=== PATIENT | female | born 1985 | race Caucasian/White ===

== ENCOUNTER 2019-04-19 15:54 | Emergency (ER) | payer OTHER ==
[~2019-04-19] VITALS: Ht 157.5 cm; Wt 63.5 kg
[~2019-04-19 15:54] MED LIST: LISI10TA2 PO; SERT25TA PO
[2019-04-19 16:25] VITALS: BP 138/102
[2019-04-19] MEDS ORDERED: HYDR-3164 PO (17:24)
[2019-04-19] MEDS ORDERED: ORPH100T PO (17:24)
--- NOTE | 2019-04-19 17:24 | PHYS DOC ---
Past Medical History Past Medical History: Hypertension Past Surgical History: Tubal ligation Alcohol Use: Occasionally Drug Use: None Adult General Chief Complaint Chief Complaint: Neck Pain HPI HPI Patient is a 33 year old female who presents with right-sided neck pain that she awoke with this morning. Patient states it's very hard to turn and look to the right and she will get a sharp pain in the right neck. Patient states that she did sleep with her arm right behind her neck and on her right side last night. 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 She is rating her pain an 8 out of 10 especially with movement. Review of Systems Review of Systems Musculoskeletal: Right sided neck pain. Denies back pain or joint pain [] All other systems were reviewed and found to be within normal limits, except as documented in this note. Allergies Allergies Allergies Coded Allergies Type Severity Reaction Last Updated Verified No Known Drug Allergies 10/11/13 No Physical Exam Physical Exam Constitutional: Well developed, well nourished, no acute distress, non-toxic appearance. [] HENT: Normocephalic, atraumatic, bilateral external ears normal, oropharynx moist, no oral exudates, nose normal. [] Eyes: PERRLA, EOMI, conjunctiva normal, no discharge. [] Neck: Right range of motion limited, Right neck tenderness, supple, no stridor. [] Cardiovascular:Heart rate regular rhythm, no murmur [] Lungs & Thorax: Bilateral breath sounds clear to auscultation [] Abdomen: Bowel sounds normal, soft, no tenderness, no masses, no pulsatile masses. [] Skin: Warm, dry, no erythema, no rash. [] Back: No tenderness, no CVA tenderness. [] Extremities: No tenderness, no cyanosis, no clubbing, ROM intact, no edema. [] Neurologic: Alert and oriented X 3, normal motor function, normal sensory func tion, no focal deficits noted. [] Psychologic: Affect normal, judgement normal, mood normal. [] Current Patient Data Vital Signs Vital Signs Date Time Temp Pulse Resp B/P (MAP) Pulse Ox O2 Delivery O2 Flow Rate FiO2 04/19/19 16:25 98.1 110 16 138/102 (114) 97 Room Air 98.1 Lab Values Laboratory Tests Test 04/19/19 16:40 POC Urine HCG, Qualitative Hcg negative (Negative) EKG EKG [] Radiology/Procedures Radiology/Procedures [] Course & Med Decision Making Course & Med Decision Making Patient denies fever, nausea, vomiting, visual changes, numbness or tingling, back pain, body aches. Her neck is not rigid and is tender with palpation to the right neck. She denies any injury. Alert and oriented. Ambulatory with steady gait. Neck is supple. Range of motion when looking to the right is not intact due to pain. Patient's chin is rotated to the right but the head is tilted more so to the left. Dragon Disclaimer Dragon Disclaimer This electronic medical record was generated, in whole or in part, using a voice recognition dictation system. Departure Departure Impression: Primary Impression: Acute torticollis Disposition: 01 HOME, SELF-CARE Condition: STABLE Referrals: DEEDEE HAIRSTON MD (PCP) Patient Instructions: Torticollis, Acute Additional Instructions: Follow up with primary care provider. Take medications as prescribed. Try using a heating pad. Scripts Orphenadrine Citrate (ORPHENADRINE CITRATE) 100 Mg Tablet.er 1 TAB PO BID, #20 TAB Prov: NANY ROBERTS APRN 04/19/19 Hydrocodone/Apap 5-325 (NORCO 5-325 TABLET) 1 Each Tablet 1 TAB PO PRN Q6HRS PRN for PAIN, #10 TAB 0 Refills Prov: NANY ROBERTS APRN 04/19/19 NANY ROBERTS APRN Apr 19, 2019 17:24
== END 2019-04-19 17:49 | disposition home or self-care (01) ==
LOC: ER 15:54
DX: M43.6 Torticollis (principal); I10 Essential (primary) hypertension
CPT/HCPCS: 81025; 99283

== ENCOUNTER → 2020-01-09 | Outpatient (CLI) | payer OTHER ==
[~2020-01-09] MED LIST changes: +HYDR-3164 PO; +ORPH100T PO
[2020-01-09 13:07] LABS: BASO % 1 % (0-3); EOS # 0.1 x10^3/uL (0.0-0.7); EOS % 1 % (0-3); HEMATOCRIT 41.7 % (36.0-47.0); HEMOGLOBIN 14.6 g/dL (12.0-15.5); LYMPH # 1.2 x10^3/uL (1.0-4.8); LYMPH % 24 % (24-48); MEAN CORPUSCULAR HEMOGLOBIN 32 pg (25-35); MEAN CORPUSCULAR HGB CONC 35 g/dL (31-37); MEAN CORPUSCULAR VOLUME 91 fL (79-100); MONO # 0.4 x10^3/uL (0.0-1.1); MONO % 8 % (0-9); NEUT # 3.3 x10^3/uL (1.8-7.7); NEUT % 66 % (31-73); PLATELET COUNT 272 x10^3/uL (140-400); RED BLOOD COUNT 4.59 x10^6/uL (3.50-5.40); RED CELL DISTRIBUTION WIDTH 12.5 % (11.5-14.5)
== END | disposition home or self-care (01) ==
LOC: LAB 12:16
PROVIDERS: ATTEND Family Medicine
DX: Z34.91 Encounter for supervision of normal pregnancy, unspecified, first trimester (principal); N91.2 Amenorrhea, unspecified; Z3A.00 Weeks of gestation of pregnancy not specified
CPT/HCPCS: 36415; 84702; 85025; 86592; 86703; 86762; 86850; 86900; 86901; 87340; 88175

== ENCOUNTER → 2020-01-14 | Outpatient (CLI) | payer OTHER ==
[~2020-01-14] MED LIST changes: +CEPH500T PO
== END | disposition home or self-care (01) ==
LOC: LAB 10:58
PROVIDERS: ATTEND Family Medicine
DX: N91.2 Amenorrhea, unspecified (principal)
CPT/HCPCS: 36415; 84702

== ENCOUNTER 2020-01-16 13:16 | Emergency (ER) | payer OTHER ==
[~2020-01-16] VITALS: Ht 154.9 cm; Wt 71.0 kg
[~2020-01-16 13:16] MED LIST changes: -CEPH500T PO
[2020-01-16 13:49] LABS: BILIRUBIN,URINE MODERATE (NEG); CLARITY,URINE CLOUDY; COLOR,URINE RED; NITRITE,URINE NEGATIVE (NEG); PH,URINE 5.5 (<5.0-8.0); PROTEIN,URINE 30 mg/dL (NEG-TRACE)
[2020-01-16 13:59] LABS: BACTERIA,URINE FEW /HPF (0-FEW); RBC,URINE TNTC /HPF (0-2); SQUAMOUS EPITHELIAL CELL,UR FEW /LPF
[2020-01-16 14:02] LABS: BARBITURATES NEG (NEG); BENZODIAZEPINES NEG (NEG); CANNABINOIDS NEG (NEG); COCAINE NEG (NEG); METHADONE NEG (NEG); OPIATES NEG (NEG); PHENCYCLIDINE NEG (NEG)
[2020-01-16 14:03] LABS: AMPHETAMINE/METHAMPHETAMINE NEG (NEG)
--- NOTE | 2020-01-16 14:32 | RAD ---
Obstetric ultrasound less than 14 weeks HISTORY: Vaginal bleeding and . Quantitative beta hCG 19 on January 13. FINDINGS: Transabdominal imaging demonstrates anteverted uterus measuring 7.8 x 4.4 x 4.3 cm. No intrauterine gestational sac documented. Ovaries not visualized. Transvaginal imaging demonstrates an anteverted uterus. Endometrium thickness 0.6 cm. No intrauterine gestational sac or a small cervical cysts. Right ovary measures 1.4 x 3.3 x 1.5 cm with a few subcentimeter follicles. Left ovary measures 1.2 x 3.3 1.3 cm with a few subcentimeter follicles. There is intact bilateral right blood flow. No adnexal masses. No pelvic fluid. IMPRESSION: Negative exam. No intrauterine evident. No adnexal ectopic evident. Given the low quantitative hCG these findings could be the sequela of a sonographically occult early intrauterine , recent spontaneous , or sonographically occult ectopic chronicity. Clinical and sonographic follow-up will be of benefit. Electronically signed by: Harpreet Henderson MD (01/16/2020 2:29 PM) [facility]
[2020-01-16 15:19] LABS: BASO % 1 % (0-3); EOS # 0.1 x10^3/uL (0.0-0.7); EOS % 2 % (0-3); HEMATOCRIT 39.5 % (36.0-47.0); HEMOGLOBIN 13.8 g/dL (12.0-15.5); LYMPH # 1.5 x10^3/uL (1.0-4.8); LYMPH % 26 % (24-48); MEAN CORPUSCULAR HEMOGLOBIN 32 pg (25-35); MEAN CORPUSCULAR HGB CONC 35 g/dL (31-37); MEAN CORPUSCULAR VOLUME 91 fL (79-100); MONO # 0.5 x10^3/uL (0.0-1.1); MONO % 9 % (0-9); NEUT # 3.6 x10^3/uL (1.8-7.7); NEUT % 62 % (31-73); PLATELET COUNT 247 x10^3/uL (140-400); RED BLOOD COUNT 4.36 x10^6/uL (3.50-5.40); RED CELL DISTRIBUTION WIDTH 12.5 % (11.5-14.5); WHITE BLOOD COUNT 5.7 x10^3/uL (4.0-11.0)
[2020-01-16 15:32] LABS: CALCIUM 8.9 mg/dL (8.5-10.1); CREATININE 1.1 mg/dL (0.6-1.0); GFR 56.5; POTASSIUM 3.6 mmol/L (3.5-5.1)
[2020-01-16 15:38] LABS: ALBUMIN 3.6 g/dL (3.4-5.0); TOTAL BILIRUBIN 0.4 mg/dL (0.2-1.0); TOTAL PROTEIN 7.1 g/dL (6.4-8.2)
[2020-01-16] MEDS ORDERED: CEPH500T PO (16:42)
--- NOTE | 2020-01-16 16:42 | PHYS DOC ---
Past Medical History Past Medical History: Hypertension Past Surgical History: Tubal ligation Smoking Status: Never Smoker Alcohol Use: Occasionally Drug Use: None General Adult EDM: Chief Complaint: VAGINAL BLEEDING HPI: HPI: Patient is a 34 year old female with history of hypertension 4 para 3 currently presenting to the ED today with vaginal bleeding and that began 2 days ago. Patient is also complaining of slight lower abdominal cramping. Patient states she was seen by the PCP approximately a week ago and had an incidental positive test, she states her blood work was drawn and she was told she might be having a miscarriage because repeat beta- hCG's were low. She has had a previous tubal ligation.she opened up recently with the intention of getting . Denies any nausea, vomiting. Patient reports last menstrual cycle was the beginning of December 2019 Review of Systems: Review of Systems: Constitutional: Denies fever or chills. [] Eyes: Denies change in visual acuity. [] HENT: Denies nasal congestion or sore throat. [] Respiratory: Denies cough or shortness of breath. [] Cardiovascular: Denies chest pain or edema. [] GI: Reports abdominal pain in , vaginal bleeding in , denies nausea, vomiting, bloody stools or diarrhea. [] : Denies dysuria. [] Musculoskeletal: Denies back pain or joint pain. [] Integument: Denies rash. [] Neurologic: Denies headache, focal weakness or sensory changes. [] Psychiatric: Denies depression or anxiety. [] Heart Score: Risk Factors: Risk Factors: DM, Current or recent (<one month) smoker, HTN, HLP, family history of CAD, obesity. Risk Scores: Score 0 - 3: 2.5% MACE over next 6 weeks - Discharge Home Score 4 - 6: 20.3% MACE over next 6 weeks - Admit for Clinical Observation Score 7 - 10: 72.7% MACE over next 6 weeks - Early Invasive Strategies Allergies: Allergies: Allergies Coded Allergies Type Severity Reaction Last Updated Verified No Known Drug Allergies 10/11/13 No Physical Exam: PE: Constitutional: Well developed, well nourished, no acute distress, non-toxic appearance. [] HENT: Normocephalic, atraumatic, bilateral external ears normal, oropharynx moist, no oral exudates, nose normal. [] Eyes: PERRLA, EOMI, conjunctiva normal, no discharge. [] Neck: Normal range of motion, no tenderness, supple, no stridor. [] Cardiovascular:Heart rate regular rhythm, no murmur [] Lungs & Thorax: Bilateral breath sounds clear to auscultation [] Abdomen: Bowel sounds normal, soft, no tenderness, no masses, no pulsatile masses. [] Pelvic exam External pelvic appears normal, cervix is visualized, no CMT, no adnexal tenderness, trace amount of bright red blood in the vaginal vault Skin: Warm, dry, no erythema, no rash. [] Back: No tenderness, no CVA tenderness. [] Extremities: No tenderness, no cyanosis, no clubbing, ROM intact, no edema. [] Neurologic: Alert and oriented X 3, normal motor function, normal sensory function, no focal deficits noted. [] Psychologic: Affect normal, judgement normal, mood normal. [] Current Patient Data: Labs: Laboratory Tests Test 01/16/20 13:30 01/16/20 13:36 01/16/20 13:43 01/16/20 15:10 Urine Collection Type Unknown Urine Color Red Urine Clarity Cloudy Urine pH 5.5 (<5.0-8.0) Urine Specific [place] >=1.030 (1.000-1.030) Urine Protein 30 mg/dL (NEG-TRACE) Urine Glucose (UA) Negative mg/dL (NEG) Urine Ketones (Stick) 15 mg/dL (NEG) Urine Blood Large (NEG) Urine Nitrite Negative (NEG) Urine Bilirubin Moderate (NEG) Urine Urobilinogen Dipstick 1.0 mg/dL (0.2 mg/dL) Urine Leukocyte Esterase Moderate (NEG) Urine RBC Tntc /HPF (0-2) Urine WBC 5-10 /HPF (0-4) Urine Squamous Epithelial Cells Few /LPF Urine Bacteria Few /HPF (0-FEW) Urine Mucus Slight /LPF Urine Opiates Screen Neg (NEG) Urine Methadone Screen Neg (NEG) Urine Barbiturates Neg (NEG) Urine Phencyclidine Screen Neg (NEG) Urine Amphetamine/Methamphetamine Neg (NEG) Urine Benzodiazepines Screen Neg (NEG) Urine Cocaine Screen Neg (NEG) Urine Cannabinoids Screen Neg (NEG) Urine Ethyl Alcohol Neg (NEG) Sodium Level 140 mmol/L (136-145) Potassium Level 3.6 mmol/L (3.5-5.1) Chloride Level 105 mmol/L (98-107) Carbon Dioxide Level 28 mmol/L (21-32) Anion Gap 7 (6-14) Blood Urea Nitrogen 14 mg/dL (7-20) Creatinine 1.1 mg/dL (0.6-1.0) H Estimated GFR (Cockcroft-Gault) 56.5 BUN/Creatinine Ratio 13 (6-20) Glucose Level 98 mg/dL (70-99) Calcium Level 8.9 mg/dL (8.5-10.1) Total Bilirubin 0.4 mg/dL (0.2-1.0) Aspartate Amino Transferase (AST) 14 U/L (15-37) L Alanine Aminotransferase (ALT) 19 U/L (14-59) Alkaline Phosphatase 73 U/L (46-116) Total Protein 7.1 g/dL (6.4-8.2) Albumin 3.6 g/dL (3.4-5.0) Albumin/Globulin Ratio 1.0 (1.0-1.7) POC Urine HCG, Qualitative Borderline hcg level White Blood Count 5.7 x10^3/uL (4.0-11.0) Red Blood Count 4.36 x10^6/uL (3.50-5.40) Hemoglobin 13.8 g/dL (12.0-15.5) Hematocrit 39.5 % (36.0-47.0) Mean Corpuscular Volume 91 fL (79-100) Mean Corpuscular Hemoglobin 32 pg (25-35) Mean Corpuscular Hemoglobin Concent 35 g/dL (31-37) Red Cell Distribution Width 12.5 % (11.5-14.5) Platelet Count 247 x10^3/uL (140-400) Neutrophils (%) (Auto) 62 % (31-73) Lymphocytes (%) (Auto) 26 % (24-48) Monocytes (%) (Auto) 9 % (0-9) Eosinophils (%) (Auto) 2 % (0-3) Basophils (%) (Auto) 1 % (0-3) Neutrophils # (Auto) 3.6 x10^3/uL (1.8-7.7) Lymphocytes # (Auto) 1.5 x10^3/uL (1.0-4.8) Monocytes # (Auto) 0.5 x10^3/uL (0.0-1.1) Eosinophils # (Auto) 0.1 x10^3/uL (0.0-0.7) Basophils # (Auto) 0.0 x10^3/uL (0.0-0.2) Maternal Serum HCG Beta Subunit 12 mIU/mL (0-5) H Ethyl Alcohol Level < 10 mg/dL (0-10) Laboratory Tests 01/16/20 15:10 Laboratory Tests 01/16/20 13:36 Microbiology 01/16/20 Wet Prep - Final, Complete Vital Signs: Vital Signs Date Time Temp Pulse Resp B/P (MAP) Pulse Ox O2 Delivery O2 Flow Rate FiO2 01/16/20 13:44 98.7 112 18 159/98 (118) 94 Room Air 98.7 EKG: EKG: [] Radiology/Procedures: Radiology/Procedures: []PROCEDURE: OB <14 WKS W/TV Obstetric ultrasound less than 14 weeks HISTORY: Vaginal bleeding and . Quantitative beta hCG 19 on January 13. FINDINGS: Transabdominal imaging demonstrates anteverted uterus measuring 7.8 x 4.4 x 4.3 cm. No intrauterine gestational sac documented. Ovaries not visualized. Transvaginal imaging demonstrates an anteverted uterus. Endometrium thickness 0.6 cm. No intrauterine gestational sac or a small cervical cysts. Right ovary measures 1.4 x 3.3 x 1.5 cm with a few subcentimeter follicles. Left ovary measures 1.2 x 3.3 1.3 cm with a few subcentimeter follicles. There is intact bilateral right blood flow. No adnexal masses. No pelvic fluid. IMPRESSION: Negative exam. No intrauterine evident. No adnexal ectopic evident. Given the low quantitative hCG these findings could be the sequela of a sonographically occult early intrauterine , recent spontaneous , or sonographically occult ectopic chronicity. Clinical and sonographic follow-up will be of benefit. Electronically signed by: Laxmi Henderson MD (01/16/2020 2:29 PM) [facility] [place] DICTATED and SIGNED BY: LAXMI HENDERSON MD DATE: 01/16/20 1429 Course & Med Decision Making: Course & Med Decision Making Pertinent Labs and Imaging studies reviewed. (See chart for details) This is a 34-year-old female patient 4 para 3 currently presenting to the ED today with vaginal bleeding and that began yesterday. Patient had an incidental positive test a week ago, she reports her beta-hCG was low, it was repeated by the primary care doctor and was still trending down. She was informed she could have a miscarriage. Presents today because she started bleeding yesterday. Hemoglobin and hematocrit are normal. Beta-hCG is 12. Looking at her previous labs beta-hCG was 149 on January 09, 2020, beta-hCG was 19 on January 14, 2020. OB ultrasound was unable to find an IUP. Urine positive for UTI d/c on cephalaxin. F/u with Ob/PCP in two days for repeat hcgs. Blood group O+ Lisa Disclaimer: Lisa Disclaimer: This electronic medical record was generated, in whole or in part, using a voice recognition dictation system. Departure Departure Impression: Primary Impression: Miscarriage, threatened, early Additional Impression: UTI (urinary tract infection) Qualified Codes: N39.0 - Urinary tract infection, site not specified Disposition: HOME, SELF-CARE Condition: STABLE Referrals: DEEDEE HAIRSTON MD (PCP) follow up in 2 days fore repeat labs Patient Instructions: Threatened Miscarriage, Urinary Tract Infection Additional Instructions: You were evaluated in the emergency room, it appears you are having a miscarriage. Your beta-hCG was 12 today. This number looks like it is trending down. Please maintain bedrest. Do not do any strenuous activity, no sexual intercourse. Follow-up with your [facility] TE[employer]ER in 2 days for repeat labs. Your blood group is O+. You also have Urinary tract infection, please complete your antibiotics. Return to the Ed if symptoms worsen. Scripts Cephalexin (CEPHALEXIN) 500 Mg Tablet 1 TAB PO BID, #14 TAB Prov: MICHAEL LIU APRN 01/16/20 Justicifation of Admission Dx: Justifications for Admission: Justification of Admission Dx: N/A MICHAEL LIU APRN Jan 16, 2020 16:42
[2020-01-16 16:45] VITALS: BP 138/85
[2020-01-17 20:08] LABS: GC PROBE Negative (Negative)
== END 2020-01-16 16:57 | disposition home or self-care (01) ==
LOC: ER 13:16
DX: O20.0 Threatened abortion (principal); O23.41 Unspecified infection of urinary tract in pregnancy, first trimester; R10.9 Unspecified abdominal pain; I10 Essential (primary) hypertension; Z98.51 Tubal ligation status
CPT/HCPCS: 36415; 76801; 76817; 80053; 80307; 81001; 81025; 84702; 85025; 86850; 86900; 86901; 87086; 87491; 87591; 99284; G0480; Q0111

== ENCOUNTER 2020-02-28 09:46 | Emergency (ER) | payer OTHER ==
[~2020-02-28] VITALS: Ht 157.5 cm; Wt 71.0 kg
[~2020-02-28 09:46] MED LIST changes: +CEPH500T PO
[2020-02-28 10:08] LABS: BILIRUBIN,URINE NEGATIVE (NEG); CLARITY,URINE CLEAR; COLOR,URINE RED; NITRITE,URINE NEGATIVE (NEG); PH,URINE 6.5 (<5.0-8.0); PROTEIN,URINE NEGATIVE (NEG-TRACE)
[2020-02-28 10:38] LABS: BACTERIA,URINE 0 /HPF (0-FEW); RBC,URINE TNTC /HPF (0-2); WBC,URINE 0 /HPF (0-4)
--- NOTE | 2020-02-28 10:58 | RAD ---
EXAM: Obstetric sonogram. HISTORY: Vaginal bleeding. TECHNIQUE: Transvaginal sonographic imaging of the pelvis was performed. COMPARISON: 01/16/2020. FINDINGS: The uterus measures 9.2 x 5.3 x 4.3 cm. The endometrial stripe measures 4.3 mm in thickness. There is an echogenic focus along the endometrial stripe which may be due to a tiny calcification. There are nabothian cysts within the cervix. The ovaries are normal in size and demonstrate normal blood flow. There is no pelvic free fluid. IMPRESSION: No evidence of an intrauterine gestation. There is no beta-hCG level for correlation at the time of dictation. If there is a positive beta-hCG level which is continuing to increase, the possibility of an early viable or ectopic gestation is not excluded. If the beta-hCG level is decreasing, this favors a chemical . Correlate with serial beta hCG levels and possible short-term follow-up sonography. Electronically signed by: Kaylah Phillips MD (02/28/2020 10:55 AM) [id number]
--- NOTE | 2020-02-28 11:01 | ED.ADGEN ---
Past Medical History Past Medical History: Hypertension Additional Past Medical Histor: MISCARRIAGE Past Surgical History: Tubal ligation Smoking Status: Never Smoker Alcohol Use: Occasionally Drug Use: None General Adult EDM: Chief Complaint: ABDOMINAL PAIN IN HPI: HPI: Patient is 34-year-old female who presents to the emergency room complaining of spotting during . Patient states that she had a negative test last week but had a positive test 2 days ago. She had a spontaneous miscarriage at the end of December. She has no idea how far along she may be. She did have some soreness in her abdomen yesterday which is now resolved. She is requesting to be placed on bedrest. 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 She denies any further bleeding or abdominal pain today. She denies any nausea, vomiting, diarrhea, constipation, fever, chills, dysuria. Review of Systems: Review of Systems: Complete ROS is negative unless otherwise documented in HPI Allergies: Allergies: Allergies Coded Allergies Type Severity Reaction Last Updated Verified No Known Drug Allergies 10/11/13 No Physical Exam: PE: General: Awake, alert, NAD. Well Nourished, well hydrated. Cooperative HEENT: Atraumatic, EOMI, PERRL, airway patent, moist oral mucosa Neck: Supple, trachea midline Respiratory: CTA bilaterally, normal effort, no wheezing/crackles CV: RRR, no murmur, cap refill <2 GI: Soft, nondistended, nontender, no masses MSK: No obvious deformities Skin: Warm, dry, intact Neuro: A&O x3, speech NL, sensory and motor grossly intact, no focal deficits Psych: Normal affect, normal mood, not suicidal or homicidal Current Patient Data: Labs: Laboratory Tests Test 02/28/20 09:53 02/28/20 09:56 02/28/20 11:00 Urine Collection Type Unknown Urine Color Red Urine Clarity Clear Urine pH 6.5 (<5.0-8.0) Urine Specific [place] 1.020 (1.000-1.030) Urine Protein Negative mg/dL (NEG-TRACE) Urine Glucose (UA) Negative mg/dL (NEG) Urine Ketones (Stick) Negative mg/dL (NEG) Urine Blood Large (NEG) Urine Nitrite Negative (NEG) Urine Bilirubin Negative (NEG) Urine Urobilinogen Dipstick 1.0 mg/dL (0.2 mg/dL) Urine Leukocyte Esterase Small (NEG) Urine RBC Tntc /HPF (0-2) Urine WBC 0 /HPF (0-4) Urine Squamous Epithelial Cells Mod /LPF Urine Bacteria 0 /HPF (0-FEW) POC Urine HCG, Qualitative Hcg positive (Negative) Maternal Serum HCG Beta Subunit 25 mIU/mL (0-5) H Vital Signs: Vital Signs Date Time Temp Pulse Resp B/P (MAP) Pulse Ox O2 Delivery O2 Flow Rate FiO2 02/28/20 09:49 99.0 118 16 168/107 (127) 97 Room Air 99.0 EKG: EKG: [] Heart Score: Risk Factors: Risk Factors: DM, Current or recent (<one month) smoker, HTN, HLP, family history of CAD, obesity. Risk Scores: Score 0 - 3: 2.5% MACE over next 6 weeks - Discharge Home Score 4 - 6: 20.3% MACE over next 6 weeks - Admit for Clinical Observation Score 7 - 10: 72.7% MACE over next 6 weeks - Early Invasive Strategies Radiology/Procedures: Radiology/Procedures: [] Course & Med Decision Making: Course & Med Decision Making Pertinent Labs and Imaging studies reviewed. (See chart for details) Patient is a 34 year-old who presents to the Emergency Room with vaginal bleeding and abdominal soreness. Patient has not seen passage of tissue. She has not had a formal ultrasound and does not have a confirmed IUP. UA, Rh type, OB ultrasound, test were ordered. At this time, ultrasound shows empty uterus with no signs of ectopic likely related to early . Patient does not need rhogam. I have discussed with the patient that they are likely have a threatened . We have discussed early on in we are unable to prevent miscarriages. We will discussed pelvic rest until she follows up with OBGYN. I have discussed with her that bedrest typically is not indicated this early in and that she should further discuss this with her CEMENTER MACHINE. She will return to the Emergency Room if she has a large amount of bleeding, syncope, SOB. Patient's test results and vitals while in the ED were fully reviewed and discussed with the patient. Patient is stable and at this time does not need admission to the hospital. We have discussed strict return precautions and the importance of following up with their Primary Care Physician. Patient stated understanding and was given an opportunity to ask any questions. Dragon Disclaimer: Dragon Disclaimer: This electronic medical record was generated, in whole or in part, using a voice recognition dictation system. Departure Departure Impression: Primary Impression: Bleeding in early Disposition: 01 DC HOME SELF CARE/HOMELESS Condition: STABLE Referrals: DEEDEE HAIRSTON MD (PCP) Patient Instructions: Vaginal Bleeding During , First Trimester MARTINA MORSE MD Feb 28, 2020 11:01
[2020-02-28 12:12] VITALS: BP 130/81
== END 2020-02-28 12:10 | disposition home or self-care (01) ==
LOC: ER 09:46
DX: O20.9 Hemorrhage in early pregnancy, unspecified (principal); O16.1 Unspecified maternal hypertension, first trimester; Z3A.01 Less than 8 weeks gestation of pregnancy; Z98.51 Tubal ligation status
CPT/HCPCS: 36415; 76817; 81001; 81025; 84702; 86900; 86901; 99284

== ENCOUNTER → 2020-03-04 | Outpatient (CLI) | payer OTHER ==
[2020-02-28 12:12] VITALS: BP 130/81
== END ==
LOC: LAB 11:24
PROVIDERS: ATTEND Family Medicine
DX: O20.0 Threatened abortion (principal)
CPT/HCPCS: 36415; 84702

== ENCOUNTER → 2020-03-17 | Outpatient (CLI) | payer OTHER ==
[2020-02-28 12:12] VITALS: BP 130/81
== END ==
LOC: LAB 10:13
PROVIDERS: ATTEND Family Medicine
DX: O02.0 Blighted ovum and nonhydatidiform mole (principal); Z3A.00 Weeks of gestation of pregnancy not specified
CPT/HCPCS: 36415; 84702

== ENCOUNTER → 2020-06-05 | Outpatient (CLI) | payer OTHER ==
[~2020-06-05] MED LIST changes: +LISI10TA16 PO; -LISI10TA2 PO
[2020-06-05 15:39] LABS: BASO % 1 % (0-3); EOS # 0.1 x10^3/uL (0.0-0.7); EOS % 1 % (0-3); HEMATOCRIT 39.4 % (36.0-47.0); HEMOGLOBIN 13.5 g/dL (12.0-15.5); LYMPH # 1.5 x10^3/uL (1.0-4.8); LYMPH % 19 % (24-48); MEAN CORPUSCULAR HEMOGLOBIN 31 pg (25-35); MEAN CORPUSCULAR HGB CONC 34 g/dL (31-37); MEAN CORPUSCULAR VOLUME 91 fL (79-100); MONO # 0.6 x10^3/uL (0.0-1.1); MONO % 8 % (0-9); NEUT # 5.6 x10^3/uL (1.8-7.7); NEUT % 72 % (31-73); PLATELET COUNT 263 x10^3/uL (140-400); RED BLOOD COUNT 4.33 x10^6/uL (3.50-5.40); RED CELL DISTRIBUTION WIDTH 12.6 % (11.5-14.5); WHITE BLOOD COUNT 7.9 x10^3/uL (4.0-11.0)
== END ==
LOC: LAB 15:14
PROVIDERS: ATTEND Family Medicine
DX: O20.0 Threatened abortion (principal); N91.2 Amenorrhea, unspecified
CPT/HCPCS: 36415; 84702; 85025

== ENCOUNTER → 2020-06-10 | Outpatient (CLI) | payer OTHER | LOC: LAB 09:03 | PROVIDERS: ATTEND Family Medicine | DX: Z34.91 Encounter for supervision of normal pregnancy, unspecified, first trimester (principal); Z3A.00 Weeks of gestation of pregnancy not specified | CPT/HCPCS: 36415; 84702 ==

== ENCOUNTER → 2020-06-18 | Outpatient (CLI) | payer OTHER ==
--- NOTE | 2020-06-18 13:30 | RAD ---
INDICATION: Reason: SUPERVISION OF NORMAL IN FIRST TRIMESTER / Spl. Instructions: / Histor y: COMPARISON: February 2020 TECHNIQUE: Grayscale and color ultrasound images uterus and adnexa. FINDINGS: Uterus: 101 x 73 x 60 mm. Intrauterine gestational sac is identified with a pole with a heart beat of 145 and a crown-rum p length of 12 mm. Right Ovary: 27 x 27 x 24 mm. Left Ovary: 23 x 18 x 13 mm. Vascular flow identified to bilateral ovaries. IMPRESSION: * Intrauterine is identified with estimated gestational age of 7 weeks and 2 days with a positive heartbeat. Recommend routine anomaly screening at 18-22 weeks. Electronically signed by: Michael Pepe MD (06/18/2020 1:28 PM) [id number]
== END ==
LOC: US 12:50
PROVIDERS: ATTEND Family Medicine
DX: Z34.91 Encounter for supervision of normal pregnancy, unspecified, first trimester (principal); Z3A.01 Less than 8 weeks gestation of pregnancy
CPT/HCPCS: 76801

== ENCOUNTER → 2020-06-24 | Outpatient (CLI) | payer OTHER ==
[2020-06-24 11:54] LABS: BASO % 0 % (0-3); EOS # 0.1 x10^3/uL (0.0-0.7); EOS % 1 % (0-3); HEMATOCRIT 41.2 % (36.0-47.0); HEMOGLOBIN 14.4 g/dL (12.0-15.5); LYMPH # 1.2 x10^3/uL (1.0-4.8); LYMPH % 19 % (24-48); MEAN CORPUSCULAR HEMOGLOBIN 32 pg (25-35); MEAN CORPUSCULAR HGB CONC 35 g/dL (31-37); MEAN CORPUSCULAR VOLUME 91 fL (79-100); MONO # 0.5 x10^3/uL (0.0-1.1); MONO % 8 % (0-9); NEUT # 4.8 x10^3/uL (1.8-7.7); NEUT % 72 % (31-73); PLATELET COUNT 266 x10^3/uL (140-400); RED CELL DISTRIBUTION WIDTH 12.8 % (11.5-14.5); WHITE BLOOD COUNT 6.6 x10^3/uL (4.0-11.0)
== END ==
LOC: LAB 11:24
PROVIDERS: ATTEND Family Medicine
DX: Z34.91 Encounter for supervision of normal pregnancy, unspecified, first trimester (principal); Z3A.01 Less than 8 weeks gestation of pregnancy
CPT/HCPCS: 36415; 84144; 84702; 85025; 86592; 86703; 86762; 86850; 86900; 86901; 87340

== ENCOUNTER 2020-07-09 16:47 | Emergency (ER) | payer OTHER ==
[~2020-07-09] VITALS: Ht 157.5 cm; Wt 71.0 kg
[2020-07-09] MEDS ORDERED: IV NORMAL SALINE 1000ML BAG 1,000 ML IV ONE (18:30)
[2020-07-09] MEDS ORDERED: PROCHLORPERAZINE 10 MG/2 ML VIAL. IV ONE (18:30)
[2020-07-09 18:36] LABS: BILIRUBIN,URINE NEGATIVE (NEG); CLARITY,URINE CLEAR; COLOR,URINE YELLOW; NITRITE,URINE NEGATIVE (NEG); PH,URINE 5.5 (<5.0-8.0); PROTEIN,URINE NEGATIVE (NEG-TRACE); UROBILINOGEN,URINE 0.2 mg/dL (0.2 mg/dL)
[2020-07-09 18:42] LABS: BACTERIA,URINE MODERATE /HPF (0-FEW); RBC,URINE 0 /HPF (0-2)
[2020-07-09 19:06] LABS: BASO % 0 % (0-3); EOS % 0 % (0-3); HEMATOCRIT 42.9 % (36.0-47.0); LYMPH # 1.2 x10^3/uL (1.0-4.8); LYMPH % 12 % (24-48); MEAN CORPUSCULAR HEMOGLOBIN 32 pg (25-35); MEAN CORPUSCULAR HGB CONC 35 g/dL (31-37); MEAN CORPUSCULAR VOLUME 91 fL (79-100); MONO # 0.6 x10^3/uL (0.0-1.1); MONO % 6 % (0-9); NEUT # 7.8 x10^3/uL (1.8-7.7); NEUT % 81 % (31-73); PLATELET COUNT 271 x10^3/uL (140-400); RED BLOOD COUNT 4.74 x10^6/uL (3.50-5.40); RED CELL DISTRIBUTION WIDTH 12.5 % (11.5-14.5); WHITE BLOOD COUNT 9.7 x10^3/uL (4.0-11.0)
[2020-07-09 19:21] LABS: CREATININE 0.6 mg/dL (0.6-1.0); GFR 113.8; POTASSIUM 3.5 mmol/L (3.5-5.1)
[2020-07-09 19:28] LABS: ALBUMIN 3.4 g/dL (3.4-5.0); ALBUMIN/GLOBULIN RATIO 0.9 (1.0-1.7); TOTAL BILIRUBIN 0.4 mg/dL (0.2-1.0); TOTAL PROTEIN 7.4 g/dL (6.4-8.2)
[2020-07-09 19:34] VITALS: BP 122/71
[2020-07-09] MEDS ORDERED: PROC10TA57 PO (21:09)
--- NOTE | 2020-07-09 21:10 | PHYS DOC ---
Past Medical History Past Medical History: Hypertension Additional Past Medical Histor: MISCARRIAGE Past Surgical History: Tubal ligation Smoking Status: Never Smoker Alcohol Use: Occasionally Drug Use: None General Adult EDM: Chief Complaint: VOMITING IN HPI: HPI: Patient is a 34 year old female 7 para 3 with 3 miscarriages currently 10 weeks who presents to the ED today complaining of nausea and vomiting in that she has had prior to this . Patient denies any abdominal pain. Denies any vaginal bleeding. She states she follows up with her own PCP. She states she was started on hydroxyzine with no relief. She has also tried zofran with no relief Review of Systems: Review of Systems: Constitutional: Denies fever or chills. [] Eyes: Denies change in visual acuity. [] HENT: Denies nasal congestion or sore throat. [] Respiratory: Denies cough or shortness of breath. [] Cardiovascular: Denies chest pain or edema. [] GI: Reports nausea and vomiting. Denies abdominal pain, bloody stools or diarrhea. [] : Denies dysuria. [] Musculoskeletal: Denies back pain or joint pain. [] Integument: Denies rash. [] Neurologic: Denies headache, focal weakness or sensory changes. [] Psychiatric: Denies depression or anxiety. [] Heart Score: C/O Chest Pain: N/A Risk Factors: Risk Factors: DM, Current or recent (<one month) smoker, HTN, HLP, family history of CAD, obesity. Risk Scores: Score 0 - 3: 2.5% MACE over next 6 weeks - Discharge Home Score 4 - 6: 20.3% MACE over next 6 weeks - Admit for Clinical Observation Score 7 - 10: 72.7% MACE over next 6 weeks - Early Invasive Strategies Current Medications: Current Medications Medications (Trade) Dose Ordered Sig/Dale Start Time Stop Time Status Last Admin Dose Admin Prochlorperazine Edisylate (Compazine) 10 mg 1X ONCE 07/09/20 18:30 07/09/20 18:31 DC 07/09/20 19:07 10 MG Sodium Chloride 1,000 ml @ 1,000 mls/hr 1X ONCE 07/09/20 18:30 07/09/20 19:29 DC 07/09/20 19:07 1,000 MLS/HR Allergies: Allergies: Allergies Coded Allergies Type Severity Reaction Last Updated Verified No Known Drug Allergies 10/11/13 No Physical Exam: PE: Constitutional: Well developed, well nourished, no acute distress, non-toxic a ppearance. [] HENT: Normocephalic, atraumatic, bilateral external ears normal, oropharynx moist, no oral exudates, nose normal. [] Eyes: PERRLA, EOMI, conjunctiva normal, no discharge. [] Neck: Normal range of motion, no tenderness, supple, no stridor. [] Cardiovascular:Heart rate regular rhythm, no murmur [] Lungs & Thorax: Bilateral breath sounds clear to auscultation [] Abdomen: Bowel sounds normal, soft, no tenderness, no masses, no pulsatile masses. [] Skin: Warm, dry, no erythema, no rash. [] Back: No tenderness, no CVA tenderness. [] Extremities: No tenderness, no cyanosis, no clubbing, ROM intact, no edema. [] Neurologic: Alert and oriented X 3, normal motor function, normal sensory function, no focal deficits noted. [] Psychologic: Affect normal, judgement normal, mood normal. [] Current Patient Data: Labs: Laboratory Tests Test 07/09/20 17:40 07/09/20 17:42 07/09/20 18:58 Urine Collection Type Unknown Urine Color Yellow Urine Clarity Clear Urine pH 5.5 (<5.0-8.0) Urine Specific [place] 1.020 (1.000-1.030) Urine Protein Negative mg/dL (NEG-TRACE) Urine Glucose (UA) Negative mg/dL (NEG) Urine Ketones (Stick) 40 mg/dL (NEG) Urine Blood Negative (NEG) Urine Nitrite Negative (NEG) Urine Bilirubin Negative (NEG) Urine Urobilinogen Dipstick 0.2 mg/dL (0.2 mg/dL) Urine Leukocyte Esterase Negative (NEG) Urine RBC 0 /HPF (0-2) Urine WBC 1-4 /HPF (0-4) Urine Squamous Epithelial Cells Mod /LPF Urine Bacteria Moderate /HPF (0-FEW) Urine Mucus Marked /LPF POC Urine HCG, Qualitative Hcg positive (Negative) White Blood Count 9.7 x10^3/uL (4.0-11.0) Red Blood Count 4.74 x10^6/uL (3.50-5.40) Hemoglobin 15.0 g/dL (12.0-15.5) Hematocrit 42.9 % (36.0-47.0) Mean Corpuscular Volume 91 fL (79-100) Mean Corpuscular Hemoglobin 32 pg (25-35) Mean Corpuscular Hemoglobin Concent 35 g/dL (31-37) Red Cell Distribution Width 12.5 % (11.5-14.5) Platelet Count 271 x10^3/uL (140-400) Neutrophils (%) (Auto) 81 % (31-73) H Lymphocytes (%) (Auto) 12 % (24-48) L Monocytes (%) (Auto) 6 % (0-9) Eosinophils (%) (Auto) 0 % (0-3) Basophils (%) (Auto) 0 % (0-3) Neutrophils # (Auto) 7.8 x10^3/uL (1.8-7.7) H Lymphocytes # (Auto) 1.2 x10^3/uL (1.0-4.8) Monocytes # (Auto) 0.6 x10^3/uL (0.0-1.1) Eosinophils # (Auto) 0.0 x10^3/uL (0.0-0.7) Basophils # (Auto) 0.0 x10^3/uL (0.0-0.2) Maternal Serum HCG Beta Subunit 97596 mIU/mL (0-5) H Sodium Level 134 mmol/L (136-145) L Potassium Level 3.5 mmol/L (3.5-5.1) Chloride Level 100 mmol/L (98-107) Carbon Dioxide Level 22 mmol/L (21-32) Anion Gap 12 (6-14) Blood Urea Nitrogen 9 mg/dL (7-20) Creatinine 0.6 mg/dL (0.6-1.0) Estimated GFR (Cockcroft-Gault) 113.8 BUN/Creatinine Ratio 15 (6-20) Glucose Level 90 mg/dL (70-99) Calcium Level 9.0 mg/dL (8.5-10.1) Total Bilirubin 0.4 mg/dL (0.2-1.0) Aspartate Amino Transferase (AST) 14 U/L (15-37) L Alanine Aminotransferase (ALT) 23 U/L (14-59) Alkaline Phosphatase 53 U/L (46-116) Total Protein 7.4 g/dL (6.4-8.2) Albumin 3.4 g/dL (3.4-5.0) Albumin/Globulin Ratio 0.9 (1.0-1.7) L Laboratory Tests 07/09/20 18:58 Laboratory Tests 07/09/20 18:58 Vital Signs: Vital Signs Date Time Temp Pulse Resp B/P (MAP) Pulse Ox O2 Delivery O2 Flow Rate FiO2 07/09/20 17:59 99.1 119 18 157/89 (111) 99 Room Air 99.1 EKG: EKG: [] Radiology/Procedures: Radiology/Procedures: [] Course & Med Decision Making: Course & Med Decision Making Pertinent Labs and Imaging studies reviewed. (See chart for details) This is a 34-year-old female patient currently 10 weeks presenting to the ED today with nausea and vomiting in that she has had for the last 10 weeks. She is currently on hydroxyzine and has tried zofran with no relief CBC CMP with no acute findings, urine noted for dehydration. Urine is also contaminated. Patient was given IV fluids in the ED and Compazine. Feeling better. Discharge to home. Follow-up with her own PCP in the course of this week or next week. Her blood pressure was 157/89. She states she has history of hypertension. I recommended she ensure that her PCP is aware her blood pressure is running high. She has no protein in the urine Dragon Disclaimer: Lisa Disclaimer: This electronic medical record was generated, in whole or in part, using a voice recognition dictation system. Departure Departure Impression: Primary Impression: Hyperemesis gravidarum Additional Impression: Hypertension Qualified Codes: I10 - Essential (primary) hypertension Disposition: 01 DC HOME SELF CARE/HOMELESS Condition: STABLE Referrals: YONI LIVE MD (PCP) follow up in 1-3 days Patient Instructions: Diet - Hyperemesis Gravidarum, Hyperemesis Gravidarum Additional Instructions: You were evaluated in the emergency room for nausea and vomiting in . Your blood pressure was running high at 157/89 please ensure you follow-up with your primary care doctor for this. You noted to be dehydrated. Try your best to push some fluids. Come to the ED at any point symptoms worsen Scripts Prochlorperazine Maleate (Compazine) 10 Mg Tablet 1 TAB PO Q6HRS, #30 TAB 0 Refills Prov: MICHAEL LIU APRN 07/09/20 MICHAEL LIU APRN Jul 09, 2020 21:10
== END 2020-07-09 21:20 | disposition home or self-care (01) ==
LOC: ER 16:47
DX: O21.0 Mild hyperemesis gravidarum (principal); O16.1 Unspecified maternal hypertension, first trimester; Z98.51 Tubal ligation status; Z3A.10 10 weeks gestation of pregnancy
CPT/HCPCS: 36415; 80053; 81001; 81025; 84702; 85025; 87086; 96361; 96374; 99284; J0780; J7030

== ENCOUNTER 2020-07-23 16:41 | Emergency (ER) | payer OTHER ==
[~2020-07-23] VITALS: Ht 157.5 cm; Wt 71.3 kg
[~2020-07-23 16:41] MED LIST changes: +PROC10TA57 PO
[2020-07-23] MEDS ORDERED: IV NORMAL SALINE 1000ML BAG 1,000 ML IV ONE (17:45)
[2020-07-23] MEDS ORDERED: ONDANSETRON PF 4 MG/2 ML VIAL. IVP ONE (17:45)
[2020-07-23 17:49] LABS: BILIRUBIN,URINE NEGATIVE (NEG); CLARITY,URINE CLEAR; COLOR,URINE YELLOW; NITRITE,URINE NEGATIVE (NEG); PROTEIN,URINE NEGATIVE (NEG-TRACE)
[2020-07-23 17:53] LABS: BASO % 1 % (0-3); EOS % 1 % (0-3); HEMATOCRIT 41.3 % (36.0-47.0); HEMOGLOBIN 14.6 g/dL (12.0-15.5); LYMPH # 1.4 x10^3/uL (1.0-4.8); LYMPH % 18 % (24-48); MEAN CORPUSCULAR HEMOGLOBIN 32 pg (25-35); MEAN CORPUSCULAR HGB CONC 35 g/dL (31-37); MEAN CORPUSCULAR VOLUME 90 fL (79-100); MONO # 0.5 x10^3/uL (0.0-1.1); MONO % 7 % (0-9); NEUT # 5.5 x10^3/uL (1.8-7.7); NEUT % 74 % (31-73); PLATELET COUNT 270 x10^3/uL (140-400); RED BLOOD COUNT 4.59 x10^6/uL (3.50-5.40); RED CELL DISTRIBUTION WIDTH 12.1 % (11.5-14.5); WHITE BLOOD COUNT 7.4 x10^3/uL (4.0-11.0)
[2020-07-23 18:06] LABS: BACTERIA,URINE FEW /HPF (0-FEW); RBC,URINE 0 /HPF (0-2)
[2020-07-23 18:06] LABS: CALCIUM 8.5 mg/dL (8.5-10.1); CREATININE 0.5 mg/dL (0.6-1.0); GFR 140.4; POTASSIUM 3.2 mmol/L (3.5-5.1)
--- NOTE | 2020-07-23 18:08 | PHYS DOC ---
Past Medical History Past Medical History: Hypertension Additional Past Medical Histor: MISCARRIAGE Past Surgical History: Tubal ligation Smoking Status: Never Smoker Alcohol Use: None Drug Use: None General Adult EDM: Chief Complaint: DIZZY/LIGHT HEADED HPI: HPI: Patient is a 34 year old female at 12w "I think 1 day" presenting for nausea, vomit and weakness. States she has had intense n/v symptoms with prior pregnancies. No fever, sick contacts, travel or concerning ingestions. She has an OB and has had care thus far, was prescribed something by OB for nausea that "has been helping a little" but she continues to be nauseas. Timing of symptoms intermittent, there is no abdominal pain, vaginal bleeding or loss of fluids. Review of Systems: Review of Systems: Fourteen body systems of review of systems have been reviewed. See HPI for pertinent positives and negative responses, other clancy all other systems are negative, non-pertinent or non-contributory Heart Score: C/O Chest Pain: No HEART Score for Chest Pain: HEART Score for Chest Pain Response (Comments) Value History Slighlty/Non-Suspicious 0 ECG Normal 0 Age < 45 0 Risk Factors No Risk Factors 0 Total 0 Risk Factors: Risk Factors: DM, Current or recent (<one month) smoker, HTN, HLP, family history of CAD, obesity. Risk Scores: Score 0 - 3: 2.5% MACE over next 6 weeks - Discharge Home Score 4 - 6: 20.3% MACE over next 6 weeks - Admit for Clinical Observation Score 7 - 10: 72.7% MACE over next 6 weeks - Early Invasive Strategies Current Medications: Current Medications Medications (Trade) Dose Ordered Sig/Dale Start Time Stop Time Status Last Admin Dose Admin Ondansetron HCl (Zofran) 4 mg 1X ONCE 07/23/20 17:45 07/23/20 17:48 DC Sodium Chloride 1,000 ml @ 1,000 mls/hr 1X ONCE 07/23/20 17:45 07/23/20 18:44 07/23/20 17:49 1,000 MLS/HR Allergies: Allergies: Allergies Coded Allergies Type Severity Reaction Last Updated Verified No Known Drug Allergies 10/11/13 No Physical Exam: PE: Constitutional: Well developed, well nourished, no acute distress, non-toxic appearance. [] HENT: Normocephalic, atraumatic, bilateral external ears normal, oropharynx dry, no oral exudates, nose normal. [] Eyes: PERRLA, EOMI, conjunctiva normal, no discharge. [] Neck: Normal range of motion, no tenderness, supple, no stridor. [] Cardiovascular:Heart rate regular rhythm, no murmur [] Lungs & Thorax: Bilateral breath sounds clear to auscultation [] Abdomen: Bowel sounds normal, soft, no tenderness, no masses, no pulsatile masses. Uterus palpable and consistent with ~12 week gestation, FHR 154[] Skin: Warm, dry, no erythema, no rash. [] Back: No tenderness, no CVA tenderness. [] Extremities: No tenderness, no cyanosis, no clubbing, ROM intact, no edema. [] Neurologic: Alert and oriented X 3, normal motor function, normal sensory function, no focal deficits noted. [] Psychologic: Affect normal, judgement normal, mood normal. [] Current Patient Data: Labs: Laboratory Tests Test 07/23/20 17:20 07/23/20 17:40 Urine Collection Type Unknown Urine Color Yellow Urine Clarity Clear Urine pH 6.0 (<5.0-8.0) Urine Specific [place] 1.020 (1.000-1.030) Urine Protein Negative mg/dL (NEG-TRACE) Urine Glucose (UA) Negative mg/dL (NEG) Urine Ketones (Stick) >=80 mg/dL (NEG) Urine Blood Negative (NEG) Urine Nitrite Negative (NEG) Urine Bilirubin Negative (NEG) Urine Urobilinogen Dipstick 1.0 mg/dL (0.2 mg/dL) Urine Leukocyte Esterase Small (NEG) Urine RBC 0 /HPF (0-2) Urine WBC 5-10 /HPF (0-4) Urine Squamous Epithelial Cells Mod /LPF Urine Bacteria Few /HPF (0-FEW) Urine Mucus Mod /LPF White Blood Count 7.4 x10^3/uL (4.0-11.0) Red Blood Count 4.59 x10^6/uL (3.50-5.40) Hemoglobin 14.6 g/dL (12.0-15.5) Hematocrit 41.3 % (36.0-47.0) Mean Corpuscular Volume 90 fL (79-100) Mean Corpuscular Hemoglobin 32 pg (25-35) Mean Corpuscular Hemoglobin Concent 35 g/dL (31-37) Red Cell Distribution Width 12.1 % (11.5-14.5) Platelet Count 270 x10^3/uL (140-400) Neutrophils (%) (Auto) 74 % (31-73) H Lymphocytes (%) (Auto) 18 % (24-48) L Monocytes (%) (Auto) 7 % (0-9) Eosinophils (%) (Auto) 1 % (0-3) Basophils (%) (Auto) 1 % (0-3) Neutrophils # (Auto) 5.5 x10^3/uL (1.8-7.7) Lymphocytes # (Auto) 1.4 x10^3/uL (1.0-4.8) Monocytes # (Auto) 0.5 x10^3/uL (0.0-1.1) Eosinophils # (Auto) 0.0 x10^3/uL (0.0-0.7) Basophils # (Auto) 0.0 x10^3/uL (0.0-0.2) Laboratory Tests 07/23/20 17:40 Vital Signs: Vital Signs Date Time Temp Pulse Resp B/P (MAP) Pulse Ox O2 Delivery O2 Flow Rate FiO2 07/23/20 17:10 97.0 106 20 139/98 (112) 99 Room Air 97.0 EKG: EKG: EKG ordered and interpreted by daytime physician at 1733, further interpreted by myself at 1807 hrs. as sinus rhythm at 91 bpm, prolonged QTC at 462 otherwise unremarkable intervals, left axis deviation, no acute ischemic findings, no STEMI Radiology/Procedures: Radiology/Procedures: [] Course & Med Decision Making: Course & Med Decision Making Patient with HPI and physical exam consistent with ongoing n/v with dehydration likely contributing to her weakness. There are no obvious red flag signs on symptoms on evaluation Patient responded to 1.5 L IVF rehydration and antiemetics. She felt "much better" and ready to discharge at end of ER course Discussed concern for asymptomatic bacteriuria with patient and need for RX Antibiotics, these were started prior to departure. Strict return precautions discussed with good understanding by patient and , all questions and concerns addressed. Patient to follow-up with OB by the end of the week Lisa Disclaimer: Lisa Disclaimer: This electronic medical record was generated, in whole or in part, using a voice recognition dictation system. Departure Departure Impression: Primary Impression: Nausea & vomiting Additional Impressions: Dehydration Asymptomatic bacteriuria during Disposition: 01 DC HOME SELF CARE/HOMELESS Condition: IMPROVED Referrals: YONI LIVE MD (PCP) Additional Instructions: You were seen for nausea and vomiting. Please continue supportive care practic es at home that includes good p.o. intake and continuation of previously prescribed antiemetics. Please call your DECK AND HULL ASSEMBLER first thing in the morning to review ER visit this evening. You should return to the ED if you develop abdominal pain, fever > 100.3, black/bloody stools, black/bloody vomiting, cannot keep water down, or any other new or concerning symptoms. JUNIE DIAS DO Jul 23, 2020 18:08
[2020-07-23] MEDS ORDERED: CEPHALEXIN 250 MG CAPSULE. PO SCH (19:30)
[2020-07-23] MEDS ORDERED: IV RINGERS,LACTATED 500ML 500 ML IV ONE (19:30)
[2020-07-23 21:27] VITALS: BP 117/70
--- NOTE | 2020-07-23 21:29 | NUR ---
Called down to ER to attempt to doppler heart tones on a 12 week gestational age patient. heart tones obtained at 160-170 BPM
--- NOTE | 2020-07-24 04:05 | EKG ---
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
== END 2020-07-23 21:57 | disposition home or self-care (01) ==
LOC: ER 16:41
DX: O21.9 Vomiting of pregnancy, unspecified (principal); E86.0 Dehydration; R82.71 Bacteriuria; I10 Essential (primary) hypertension; Z98.890 Other specified postprocedural states; Z98.51 Tubal ligation status; Z3A.12 12 weeks gestation of pregnancy
CPT/HCPCS: 36415; 80048; 81001; 85025; 93005; 96361; 96374; 99285; J2405; J7030; J7120

== ENCOUNTER 2020-08-28 20:37 | Emergency (ER) | payer OTHER ==
[~2020-08-28] VITALS: Ht 157.5 cm; Wt 72.0 kg
--- NOTE | 2020-08-28 21:19 | PHYS DOC ---
Past Medical History Past Medical History: Hypertension Additional Past Medical Histor: MISCARRIAGE Past Surgical History: Tubal ligation Smoking Status: Never Smoker Alcohol Use: None Drug Use: None General Adult EDM: Chief Complaint: ABDOMINAL PAIN HPI: HPI: Patient is a 34-year-old female presenting for abdominal pain and . 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 Patient reports dull pressure that is intermittent and sometimes cramping, rates the current pain 4/10 in severity. Also reports minor dysuria and increased physiologic vaginal discharge without fever, chest pain, shortness of breath, ripping or tearing abdominal pain, contractions or vaginal bleeding. She has no history of delivery less than 20 weeks, no known uterus/cervix abnormalities, no changes in baseline health Review of Systems: Review of Systems: Fourteen body systems of review of systems have been reviewed. See HPI for pertinent positives and negative responses, other clancy all other systems are negative, non-pertinent or non-contributory Heart Score: C/O Chest Pain: No HEART Score for Chest Pain: HEART Score for Chest Pain Response (Comments) Value History Slighlty/Non-Suspicious 0 Age < 45 0 Total 0 Risk Factors: Risk Factors: DM, Current or recent (<one month) smoker, HTN, HLP, family history of CAD, obesity. Risk Scores: Score 0 - 3: 2.5% MACE over next 6 weeks - Discharge Home Score 4 - 6: 20.3% MACE over next 6 weeks - Admit for Clinical Observation Score 7 - 10: 72.7% MACE over next 6 weeks - Early Invasive Strategies Allergies: Allergies: Allergies Coded Allergies Type Severity Reaction Last Updated Verified No Known Drug Allergies 10/11/13 No Physical Exam: PE: Constitutional: Well developed, well nourished, no acute distress, non-toxic a ppearance. HENT: Normocephalic, atraumatic, bilateral external ears normal, oropharynx moist, no oral exudates, nose normal. Eyes: PERRLA, EOMI, conjunctiva normal, no discharge. Neck: Normal range of motion, no tenderness, supple, no stridor. Cardiovascular: Heart rate regular, sinus rhythm, no murmurs rubs or gallops Lungs & Thorax: Bilateral breath sounds clear to auscultation Abdomen: Bowel sounds normal, soft and gravid, no tenderness, no masses, no pulsatile masses. Nonsurgical abdomen, no peritoneal signs Skin: Warm, dry, no erythema, no rash. Back: No tenderness, no CVA tenderness. Extremities: No tenderness, no cyanosis, no clubbing, ROM intact, no edema. Neurologic: Alert and oriented X 3, grossly normal motor & sensory function, no focal deficits noted. Psychologic: Affect normal, judgement normal, mood normal. Current Patient Data: Labs: Laboratory Tests Test 08/28/20 20:46 08/28/20 21:15 08/28/20 22:10 Bedside Urine HCG, Qualitative Hcg positive Urine Collection Type Unknown Urine Color Yellow Urine Clarity Clear Urine pH 5.5 Urine Specific [place] 1.020 Urine Protein Negative mg/dL Urine Glucose (UA) Negative mg/dL Urine Ketones (Stick) 15 mg/dL Urine Blood Negative Urine Nitrite Negative Urine Bilirubin Negative Urine Urobilinogen Dipstick 0.2 mg/dL Urine Leukocyte Esterase Small Urine RBC Occ /HPF Urine WBC 11-20 /HPF Urine Squamous Epithelial Cells Many /LPF Urine Bacteria Moderate /HPF Urine Mucus Marked /LPF White Blood Count 8.1 x10^3/uL Red Blood Count 4.08 x10^6/uL Hemoglobin 12.7 g/dL Hematocrit 36.5 % Mean Corpuscular Volume 90 fL Mean Corpuscular Hemoglobin 31 pg Mean Corpuscular Hemoglobin Concent 35 g/dL Red Cell Distribution Width 12.9 % Platelet Count 259 x10^3/uL Neutrophils (%) (Auto) 73 % Lymphocytes (%) (Auto) 18 % Monocytes (%) (Auto) 7 % Eosinophils (%) (Auto) 1 % Basophils (%) (Auto) 1 % Neutrophils # (Auto) 5.9 x10^3/uL Lymphocytes # (Auto) 1.5 x10^3/uL Monocytes # (Auto) 0.5 x10^3/uL Eosinophils # (Auto) 0.1 x10^3/uL Basophils # (Auto) 0.0 x10^3/uL Sodium Level 139 mmol/L Potassium Level 3.2 mmol/L Chloride Level 105 mmol/L Carbon Dioxide Level 25 mmol/L Anion Gap 9 Blood Urea Nitrogen 11 mg/dL Creatinine 0.5 mg/dL Estimated GFR (Cockcroft-Gault) 140.4 Glucose Level 91 mg/dL Calcium Level 8.5 mg/dL Current Medications Medications (Trade) Dose Ordered Sig/Dale Route PRN Reason Start Time Stop Time Status Last Admin Dose Admin Ringer's Solution 500 ml @ 500 mls/hr 1X ONCE IV 08/28/20 22:30 08/28/20 23:29 DC 08/28/20 22:21 Potassium Chloride (Klor-Con) 40 meq 1X ONCE PO 08/28/20 23:30 08/28/20 23:31 DC Vital Signs: Vital Signs Date Time Temp Pulse Resp B/P (MAP) Pulse Ox O2 Delivery O2 Flow Rate FiO2 08/28/20 20:55 98.1 121 20 145/94 (111) 98 Room Air 98.1 Vital Signs Date Time Temp Pulse Resp B/P (MAP) Pulse Ox O2 Delivery O2 Flow Rate FiO2 08/28/20 23:47 98 16 133/81 (98) 96 Room Air 08/28/20 20:55 98.1 98.1 EKG: EKG: [] Radiology/Procedures: Radiology/Procedures: Study: US OB LIMITED Clinical Indication: Lower abdominal pain. Comparison: 06/18/2020 Technique: Multiple grayscale images, color Doppler, and M-mode images of the uterus are obtained. Findings: Single live intrauterine gestation in variable presentation. The placenta is posterior in location without placenta previa. Within normal limits amniotic fluid volume. Closed cervix. Biometrical data: BPD = 3.84 cm for 17 weeks 5 days HC = 14.5 cm for 17 weeks 5 days AC = 13.1 cm for 18 weeks 4 days FL = 2.82 cm for 18 weeks 4 days CI ratio = 81.7 HC/AC ratio = 1.11 FL/HC ratio = 19.4 FL/AC ratio = 21.6 The estimated sonographic gestational age is 18 weeks 1 day for a delivery date of 01/28/2021. The estimated date of delivery provided by the last menstrual period is 02/02/2021. Estimated weight of 243 g +/- 36 g. 4 chamber heart with cardiac activity. The heart rate of 152 beats per minute. A complete survey was not performed on this limited exam. Impression: 1. Single live intrauterine gestation with estimated sonographic gestational age of 18 weeks 1 day corresponding to a delivery date of 01/28/2021. Estimated delivery date by last menstrual period of 02/02/2021. Biometric data is within normal limits. 2. Variable presentation at this time. Posterior placenta without previa. Within normal limits amniotic fluid volume. Closed cervix.. 3. No complication is seen to explain the patient's abdominal pain. Electronically signed by: KAE JIANG MD (08/28/2020 11:40 PM) [facility] Course & Med Decision Making: Course & Med Decision Making Tachycardic otherwise vital signs stable, HPI and physical exam nonconcerning for any emergent or surgical issues ER work-up obtained, UA concerning for acute infection, patient hypokalemic, OB ultrasound nonconcerning for any emergent or surgical abnormalities Joint decision to treat patient with Keflex antibiotic. 40 mEq potassium administered. 1 L IV lactated Ringer's administered. Patient's presenting symptoms resolved with ER intervention I discussed need for close follow-up. 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 Strict return precautions were discussed with good understanding by patient and at bedside, all questions and concerns addressed prior to your departure Dragon Disclaimer: Dragon Disclaimer: This electronic medical record was generated, in whole or in part, using a voice recognition dictation system. Departure Departure Impression: Primary Impression: UTI (urinary tract infection) Additional Impressions: Hypokalemia and not yet delivered in second trimester Disposition: 01 HOME / SELF CARE / HOMELESS Condition: IMPROVED Referrals: YONI LIVE MD (PCP) Additional Instructions: As discussed prior to your departure, your urinalysis was concerning for infection. As such, the antibiotic Keflex was given and subsequently prescribed to you for use on discharge. Your symptoms also respond to IV fluid rehydration. Your low potassium level was fixed with potassium supplement given while in ER setting. I disclosed nonconcerning physical exam findings and little indication for further diagnostic work-up in ER setting. You have outpatient follow-up scheduled with your primary care physician in less than 12 hours, I advise you to keep this appointment and follow-up on your visit today. If any concerning signs or symptoms present prior to outpatient follow-up please do not hesitate to come back for repeat evaluation. It was a pleasure to take care of you and I wish you the best going forward Scripts Cephalexin (CEPHALEXIN) 500 Mg Tablet 1 TAB PO TID for 5 Days, #15 TAB Prov: JUNIE DIAS DO 08/28/20 JUNIE DIAS DO August 28, 2020 21:19
[2020-08-28 21:27] LABS: BILIRUBIN,URINE NEGATIVE (NEG); CLARITY,URINE CLEAR; COLOR,URINE YELLOW; NITRITE,URINE NEGATIVE (NEG); PH,URINE 5.5 (<5.0-8.0); PROTEIN,URINE NEGATIVE (NEG-TRACE); UROBILINOGEN,URINE 0.2 mg/dL (0.2 mg/dL)
[2020-08-28 21:38] LABS: BACTERIA,URINE MODERATE /HPF (0-FEW); RBC,URINE OCC /HPF (0-2)
[2020-08-28 22:24] LABS: BASO % 1 % (0-3); EOS # 0.1 x10^3/uL (0.0-0.7); EOS % 1 % (0-3); HEMATOCRIT 36.5 % (36.0-47.0); HEMOGLOBIN 12.7 g/dL (12.0-15.5); LYMPH # 1.5 x10^3/uL (1.0-4.8); LYMPH % 18 % (24-48); MEAN CORPUSCULAR HEMOGLOBIN 31 pg (25-35); MEAN CORPUSCULAR HGB CONC 35 g/dL (31-37); MEAN CORPUSCULAR VOLUME 90 fL (79-100); MONO # 0.5 x10^3/uL (0.0-1.1); MONO % 7 % (0-9); NEUT # 5.9 x10^3/uL (1.8-7.7); NEUT % 73 % (31-73); PLATELET COUNT 259 x10^3/uL (140-400); RED BLOOD COUNT 4.08 x10^6/uL (3.50-5.40); RED CELL DISTRIBUTION WIDTH 12.9 % (11.5-14.5); WHITE BLOOD COUNT 8.1 x10^3/uL (4.0-11.0)
[2020-08-28 22:28] LABS: CALCIUM 8.5 mg/dL (8.5-10.1); CREATININE 0.5 mg/dL (0.6-1.0); GFR 140.4; POTASSIUM 3.2 mmol/L (3.5-5.1)
[2020-08-28] MEDS ORDERED: IV RINGERS,LACTATED 500ML 500 ML IV ONE (22:30)
[2020-08-28] MEDS ORDERED: POTASSIUM CHLORIDE 20 MEQ TABLET.ER. PO ONE (23:30)
--- NOTE | 2020-08-28 23:42 | RAD ---
Study: US OB LIMITED Clinical Indication: Lower abdominal pain. Comparison: 06/18/2020 Technique: Multiple grayscale images, color Doppler, and M-mode images of the uterus are obtained. Findings: Single live intrauterine gestation in variable presentation. The placenta is posterior in location wi thout placenta previa. Within normal limits amniotic fluid volume. Closed cervix. Biometrical data: BPD = 3.84 cm for 17 weeks 5 days HC = 14.5 cm for 17 weeks 5 days AC = 13.1 cm for 18 weeks 4 days FL = 2.82 cm for 18 weeks 4 days CI ratio = 81.7 HC/AC ratio = 1.11 FL/HC ratio = 19.4 FL/AC ratio = 21.6 The estimated sonographic gestational age is 18 weeks 1 day for a delivery date of 01/28/2021. The est imated date of delivery provided by the last menstrual period is 02/02/2021. Estimated weight of 243 g +/- 36 g. 4 chamber heart with cardiac activity. The heart rate of 152 beats per minute. A complete survey was not performed on this limited exam. Impression: 1. Single live intrauterine gestation with estimated sonographic gestational age of 18 weeks 1 day c orresponding to a delivery date of 01/28/2021. Estimated delivery date by last menstrual period of 02/2021. Biometric data is within normal limits. 2. Variable presentation at this time. Posterior placenta without previa. Within normal limits amnio tic fluid volume. Closed cervix.. 3. No complication is seen to explain the patient's abdominal pain. Electronically signed by: KAE JIANG MD (08/28/2020 11:40 PM) [facility] [place]
[2020-08-28] MEDS ORDERED: CEPH500T PO (23:59)
[2020-08-29] MEDS ORDERED: CEPHALEXIN 250 MG CAPSULE. PO SCH (00:15)
[2020-08-29 00:30] VITALS: BP 124/74
== END 2020-08-29 00:34 | disposition home or self-care (01) ==
LOC: ER 20:37
DX: O23.42 Unspecified infection of urinary tract in pregnancy, second trimester (principal); Z3A.18 18 weeks gestation of pregnancy; E87.6 Hypokalemia; I10 Essential (primary) hypertension; Z98.51 Tubal ligation status
CPT/HCPCS: 36415; 76815; 80048; 81001; 81025; 85025; 87086; 96360; 99285; J7120

== ENCOUNTER → 2020-09-26 | Outpatient (CLI) | payer OTHER ==
[2020-08-29 00:30] VITALS: BP 124/74
[2020-09-26 11:35] LABS: BASO % 0 % (0-3); EOS # 0.1 x10^3/uL (0.0-0.7); EOS % 1 % (0-3); HEMATOCRIT 37.7 % (36.0-47.0); HEMOGLOBIN 13.2 g/dL (12.0-15.5); LYMPH # 1.3 x10^3/uL (1.0-4.8); LYMPH % 15 % (24-48); MEAN CORPUSCULAR HEMOGLOBIN 32 pg (25-35); MEAN CORPUSCULAR HGB CONC 35 g/dL (31-37); MEAN CORPUSCULAR VOLUME 91 fL (79-100); MONO # 0.7 x10^3/uL (0.0-1.1); MONO % 8 % (0-9); NEUT # 6.9 x10^3/uL (1.8-7.7); NEUT % 77 % (31-73); PLATELET COUNT 244 x10^3/uL (140-400); RED BLOOD COUNT 4.14 x10^6/uL (3.50-5.40); RED CELL DISTRIBUTION WIDTH 13.2 % (11.5-14.5)
[2020-09-26 11:48] LABS: CALCIUM 8.9 mg/dL (8.5-10.1); CREATININE 0.5 mg/dL (0.6-1.0); GFR 140.4; POTASSIUM 3.7 mmol/L (3.5-5.1)
== END ==
LOC: LAB 11:08
PROVIDERS: ATTEND Family Medicine
DX: R30.0 Dysuria (principal); R53.83 Other fatigue
CPT/HCPCS: 36415; 80048; 85025; 87086

== ENCOUNTER → 2020-09-30 | Outpatient (CLI) | payer OTHER ==
--- NOTE | 2020-09-30 15:36 | RAD ---
EXAM: OB ULTRASOUND, > 14 WEEKS HISTORY: Large for dates. COMPARISON: 08/28/2020. TECHNIQUE: Multiple grayscale images, color Doppler, and M-mode images of the uterus are obtained. FINDINGS: There is a single intrauterine gestation in breech presentation. The placenta is grade 1 and posterio r in location without evidence of placenta previa. The amount of amniotic fluid appears appropriate. Amniotic fluid index is not measured Cervical length is 4.8 cm. Biometrical data: BPD = 5.31 cm for 22 weeks 1 days. HC = 20.48 cm for 22 weeks 4 days. AC = 16.72 cm for 20 weeks 5 days. FL = 3.87 cm for 22 weeks 3 days. HC/AC ratio = 1.2. Overall, the estimated sonographic gestational age is 22 weeks and 2 days for an estimated date of de livery of 02/01/2021. The estimated date of delivery provided by the last menstrual period is 021. Estimated weight is 478 grams. A 4 chamber heart is identified with positive cardiac activity. The estimated heart rate is 136 beats per minute. Bilateral upper and lower extremities are identified. There is a three-vessel cord with cord insertion visualized. stomach and urinary bladder are identified. Both kidneys are seen. The spine and brain are unremarkable. No obvious anatomic abnormalities are identified. The maternal ovaries are not identified in the adnexa due to overlying bowel gas. IMPRESSION: 1. Single intrauterine fetus in breech presentation with a normal heart rate and gestational age base d on ultrasound measurements of 22 weeks and 2 days. The estimated gestational age based on LMP is 22 weeks and 1 day. The estimated weight is at the 38th percentile. 2. Unremarkable anatomy survey. Electronically signed by: Kaylah Phillips MD (09/30/2020 3:33 PM) [id number]
== END ==
LOC: US 13:23
PROVIDERS: ATTEND Family Medicine
DX: O26.842 Uterine size-date discrepancy, second trimester (principal); Z3A.22 22 weeks gestation of pregnancy
CPT/HCPCS: 76805

== ENCOUNTER → 2020-11-04 | Outpatient (CLI) | payer OTHER ==
[2020-11-04 10:15] LABS: HEMATOCRIT 39.2 % (36.0-47.0); HEMOGLOBIN 13.7 g/dL (12.0-15.5)
== END ==
LOC: LAB 09:42
PROVIDERS: ATTEND Family Medicine
DX: Z34.90 Encounter for supervision of normal pregnancy, unspecified, unspecified trimester (principal); Z3A.00 Weeks of gestation of pregnancy not specified
CPT/HCPCS: 36415; 82947; 82950; 85014; 85018

== ENCOUNTER → 2020-11-14 | Outpatient (CLI) | payer OTHER | LOC: LAB 09:06 | PROVIDERS: ATTEND Family Medicine | DX: R73.09 Other abnormal glucose (principal) | CPT/HCPCS: 36415; 82947; 82950 ==

== ENCOUNTER 2020-12-06 13:37 | Observation (INO) | payer OTHER ==
[2020-12-06] MEDS ORDERED: IV RINGERS,LACTATED 1000ML 1,000 ML IV SCH (13:45)
[2020-12-06 14:09] LABS: BILIRUBIN,URINE NEGATIVE (NEG); CLARITY,URINE CLEAR; COLOR,URINE YELLOW; NITRITE,URINE NEGATIVE (NEG); PROTEIN,URINE NEGATIVE (NEG-TRACE)
[2020-12-06 14:20] LABS: BACTERIA,URINE MODERATE /HPF (0-FEW)
== END 2020-12-06 15:18 | disposition home or self-care (01) ==
LOC: 3 SO LND 13:37
PROVIDERS: ADMIT Family Medicine; ATTEND Family Medicine
DX: O26.893 Other specified pregnancy related conditions, third trimester (principal); R10.30 Lower abdominal pain, unspecified; Z3A.31 31 weeks gestation of pregnancy
CPT/HCPCS: 81001; 87086; G0378; G0379; 59025

== ENCOUNTER 2020-12-30 13:23 | Observation (INO) | payer OTHER ==
[2020-12-30] MEDS ORDERED: IV RINGERS,LACTATED 1000ML 1,000 ML IV PRN (13:45)
[2020-12-30 14:17] LABS: BILIRUBIN,URINE NEGATIVE (NEG); CLARITY,URINE CLEAR; COLOR,URINE YELLOW; NITRITE,URINE NEGATIVE (NEG); PROTEIN,URINE NEGATIVE (NEG-TRACE)
[2020-12-30 14:18] LABS: CREATININE,RANDOM URINE 53.1 mg/dL (Not Establ.)
[2020-12-30 14:33] LABS: BASO % 0 % (0-3); EOS # 0.1 x10^3/uL (0.0-0.7); EOS % 1 % (0-3); HEMATOCRIT 38.8 % (36.0-47.0); HEMOGLOBIN 13.6 g/dL (12.0-15.5); LYMPH # 1.3 x10^3/uL (1.0-4.8); LYMPH % 14 % (24-48); MEAN CORPUSCULAR HEMOGLOBIN 32 pg (25-35); MEAN CORPUSCULAR HGB CONC 35 g/dL (31-37); MEAN CORPUSCULAR VOLUME 92 fL (79-100); MONO # 0.7 x10^3/uL (0.0-1.1); MONO % 7 % (0-9); NEUT # 7.1 x10^3/uL (1.8-7.7); NEUT % 78 % (31-73); PLATELET COUNT 201 x10^3/uL (140-400); RED CELL DISTRIBUTION WIDTH 13.2 % (11.5-14.5); WHITE BLOOD COUNT 9.1 x10^3/uL (4.0-11.0)
[2020-12-30 14:39] LABS: BACTERIA,URINE MODERATE /HPF (0-FEW); RBC,URINE RARE /HPF (0-2); WBC,URINE OCC /HPF (0-4)
[2020-12-30 14:44] LABS: CREATININE 0.5 mg/dL (0.6-1.0); GFR 139.6; POTASSIUM 3.7 mmol/L (3.5-5.1)
[2020-12-30 14:50] LABS: ALBUMIN 2.5 g/dL (3.4-5.0); ALBUMIN/GLOBULIN RATIO 0.6 (1.0-1.7); TOTAL BILIRUBIN 0.3 mg/dL (0.2-1.0); TOTAL PROTEIN 6.4 g/dL (6.4-8.2)
== END 2020-12-30 15:30 | disposition home or self-care (01) ==
LOC: 3 SO LND 13:23
PROVIDERS: ADMIT Family Medicine; ATTEND Family Medicine
DX: O13.3 Gestational [pregnancy-induced] hypertension without significant proteinuria, third trimester (principal); Z3A.35 35 weeks gestation of pregnancy
CPT/HCPCS: 36415; 59025; 80053; 81001; 82570; 84156; 85025; 87086; G0378; G0379

== ENCOUNTER → 2021-01-01 | Outpatient (CLI) | payer OTHER | LOC: SPEC 12:32 | PROVIDERS: ATTEND Family Medicine | DX: Z34.93 Encounter for supervision of normal pregnancy, unspecified, third trimester (principal); Z3A.00 Weeks of gestation of pregnancy not specified | CPT/HCPCS: 87653 ==

== ENCOUNTER 2021-01-15 18:54 | Observation (INO) | payer OTHER ==
[2021-01-15] MEDS ORDERED: IV RINGERS,LACTATED 1000ML 1,000 ML IV SCH (19:15)
[2021-01-15 19:35] LABS: BILIRUBIN,URINE NEGATIVE (NEG); CLARITY,URINE CLEAR; COLOR,URINE YELLOW; NITRITE,URINE NEGATIVE (NEG); PROTEIN,URINE NEGATIVE (NEG-TRACE)
[2021-01-15 19:44] LABS: BACTERIA,URINE MODERATE /HPF (0-FEW); RBC,URINE OCC /HPF (0-2); WBC,URINE RARE /HPF (0-4)
== END 2021-01-15 21:15 | disposition home or self-care (01) ==
LOC: 3 SO LND 18:54
PROVIDERS: ADMIT Family Medicine; ATTEND Family Medicine
DX: O26.893 Other specified pregnancy related conditions, third trimester (principal); R10.2 Pelvic and perineal pain; O09.523 Supervision of elderly multigravida, third trimester; Z3A.37 37 weeks gestation of pregnancy
CPT/HCPCS: 59025; 81001; 87086; G0378; G0379

== ENCOUNTER 2021-01-20 06:07 | Inpatient (IN) | payer OTHER ==
[~2021-01-20] VITALS: Ht 157.5 cm; Wt 78.0 kg
[2021-01-20] MEDS ORDERED: fentaNYL PF VIAL 100 MCG/2 ML VIAL IVP PRN ×2 (07:00)
[2021-01-20] MEDS ORDERED: TERBUTALINE 1 MG/ML VIAL. SQ PRN (07:00)
[2021-01-20] MEDS ORDERED: MAG HYDROX/ALUMINUM HYD/SIMETH 30 ML ORAL.SUSP PO PRN ×2 (07:00→13:15)
[2021-01-20] MEDS ORDERED: ACETAMINOPHEN 325 MG TABLET. PO PRN ×2 (07:00→13:15)
[2021-01-20] MEDS ORDERED: IBUPROFEN 400 MG TABLET. PO PRN (07:00)
[2021-01-20] MEDS ORDERED: LIDOCAINE 1% PF 30 ML VIAL. INJ PRN (07:00)
[2021-01-20] MEDS ORDERED: ONDANSETRON PF 4 MG/2 ML VIAL. IVP PRN (07:00)
[2021-01-20] MEDS ORDERED: 0.9 % SODIUM CHLORIDE 10 ML DISP.SYRIN. IV PRN ×2 (07:00→13:15)
[2021-01-20] MEDS ORDERED: OXYTOCIN 30 UNIT/500 ML PREMIX 500 ML IV PRN ×3 (07:00→13:15)
[2021-01-20] MEDS: IV RINGERS,LACTATED 1000ML 1,000 ML IV SCH ×2 (07:24→10:39)
[2021-01-20 07:28] LABS: BASO % 0 % (0-3); EOS # 0.1 x10^3/uL (0.0-0.7); EOS % 1 % (0-3); HEMATOCRIT 40.1 % (36.0-47.0); HEMOGLOBIN 13.9 g/dL (12.0-15.5); LYMPH # 1.4 x10^3/uL (1.0-4.8); LYMPH % 15 % (24-48); MEAN CORPUSCULAR HEMOGLOBIN 32 pg (25-35); MEAN CORPUSCULAR HGB CONC 35 g/dL (31-37); MEAN CORPUSCULAR VOLUME 92 fL (79-100); MONO # 0.9 x10^3/uL (0.0-1.1); MONO % 10 % (0-9); NEUT # 6.9 x10^3/uL (1.8-7.7); NEUT % 74 % (31-73); PLATELET COUNT 201 x10^3/uL (140-400); RED BLOOD COUNT 4.34 x10^6/uL (3.50-5.40); RED CELL DISTRIBUTION WIDTH 13.5 % (11.5-14.5); WHITE BLOOD COUNT 9.4 x10^3/uL (4.0-11.0)
[2021-01-20] MEDS ORDERED: OXYTOCIN PREMIX 30 UNIT/500 ML NS BAG. IV ONE (07:30)
[2021-01-20 07:45] VITALS: BP 134/79
[2021-01-20 08:55] LABS: BILIRUBIN,URINE NEGATIVE (NEG); CLARITY,URINE CLEAR; COLOR,URINE YELLOW; NITRITE,URINE NEGATIVE (NEG); PH,URINE 6.5 (<5.0-8.0); PROTEIN,URINE NEGATIVE (NEG-TRACE)
--- NOTE | 2021-01-20 09:00 | PDOC1 ---
OB - History Hx of Present Care: Good Care Ultrasounds: Normal mid trimester US Obstetrical Complications: Gestational Diabetes, Gestational Hypertension Past Family/Social History * Past Medical, Surgical, Family and Obstetric Histories reviewed from chart. Blood Type: B+ Rubella: Immune RPR/VDRL: Negative GBS Status: Negative HBsAG: Negative OB - Chief Complaint & HPI Date of Admission: Date of Admission: Jan 20, 2021 at 06:07 Chief Complaint/History : 7 Para: 3 EDC: Jan 03, 2021 Reason for admission: induction of labor Indication for induction: medical complication (HTN and Mild Gest DM2) Admission Nurse Assessment Rev: Yes OB - Admission Exam Physical Exam Vitals: VS - Last 72 Hours, by Label Date Time Temp Pulse Resp B/P (MAP) Pulse Ox O2 Delivery O2 Flow Rate FiO2 01/20/21 07:45 98.5 136 20 134/79 (97) 97 Room Air 98.5 HEENT: Normal, Nasal Mucosa Normal, Oropharynx Normal, Moist Membranes, Fontanelles Normal Lungs: Clear, Equal Abdomen: Gravid Extremities: Normal Pulses, No tenderness or swelling Reflexes: Normal Cervical Dilatation: 2cm Effacement: 75% Station: -2 Membranes: Ruptured Amniotic Fluid: Clear Heart Rate: Normal Accelerations: Accelerations Present Decelerations: No decelerations Short Term Variability: Present Registered Nurse Midwife Variability: Moderate Contractions on Admission: 6-10 Minutes Apart Intensity: YONI Pelletier MD Jan 20, 2021 09:00
[2021-01-20 09:05] LABS: BARBITURATES NEG (NEG); BENZODIAZEPINES NEG (NEG); CANNABINOIDS NEG (NEG); COCAINE NEG (NEG); METHADONE NEG (NEG); OPIATES NEG (NEG); PHENCYCLIDINE NEG (NEG)
[2021-01-20 09:07] LABS: AMPHETAMINE/METHAMPHETAMINE NEG (NEG)
[2021-01-20 09:29] LABS: BACTERIA,URINE FEW /HPF (0-FEW)
[2021-01-20] MEDS ORDERED: ROPIVacaine 0.2% PF 10 ML VIAL. ONE ×2 (10:50→11:00)
[2021-01-20] MEDS ORDERED: L&D EPIDURAL SYRINGE 50 ML ONE (10:50)
[2021-01-20] MEDS ORDERED: ROPIVacaine 0.2% PF 10 ML VIAL. EPID PRN (11:00)
[2021-01-20] MEDS ORDERED: ePHEDrine PF IN SALINE 50 MG/10 ML SYRINGE. IV PRN (11:00)
[2021-01-20] MEDS ORDERED: L&D EPIDURAL 50 ML SYRINGE. ONE (11:00)
[2021-01-20] MEDS ORDERED: NALOXONE 0.4 MG/ML VIAL. IV PRN (11:00)
[2021-01-20] MEDS ORDERED: IV RINGERS,LACTATED 1000ML 1,000 ML IV SCH (11:00)
[2021-01-20] MEDS ORDERED: PHENYLEPH/MINERAL OIL/PETROLAT RECTAL OINTMENT TUBE. RC PRN (13:15)
[2021-01-20] MEDS ORDERED: SIMETHICONE 80 MG TAB.CHEW PO PRN (13:15)
[2021-01-20] MEDS ORDERED: TDaP (Adacel) per PROTOCOL. MC PRN (13:15)
[2021-01-20] MEDS ORDERED: ZOLPIDEM 5 MG TABLET. PO PRN (13:15)
[2021-01-20] MEDS ORDERED: diphenhydrAMINE HCL 25 MG CAPSULE PO PRN (13:15)
[2021-01-20] MEDS ORDERED: HYDROCORTISONE 1% TOPICAL OINTMENT 30GM TUBE. TP PRN (13:15)
[2021-01-20] MEDS ORDERED: BENZOCAINE 20% TOPICAL AEROSOL SPRAY 57GM CAN. TP PRN (13:15)
[2021-01-20] MEDS ORDERED: MMR per PROTOCOL. MC PRN (13:15)
[2021-01-20] MEDS ORDERED: HYDROcodone/APAP 5/325MG 1 TAB TABLET PO PRN ×2 (13:15)
[2021-01-20] MEDS ORDERED: MAGNESIUM HYDROXIDE 2,400 MG/30 ML ORAL.SUSP. PO PRN (13:15)
--- NOTE | 2021-01-20 13:26 | LDN ---
DATE OF DELIVERY: 01/20/2021 DELIVERY NOTE CLINICAL COURSE: This patient is a 35-year-old G7, P3, Ab3, LC3 female admitted for term induction at 38 weeks and 1 day for hypertension during and borderline gestational diabetes. She had a favorable cervix and was started on Pitocin augmentation. She had risks again of hypertension and was treated during a course with nifedipine extended release 30 mg daily. She had a negative PIH workup. She had a borderline 3-hour glucose tolerance test and was treated with diet. She is status post tubal reversal and this is her second attempt at being since tubal reversal 2 years ago. She had otherwise uncomplicated course and progressed through labor without complication having clear fluid with artificial rupture of membranes. Progressing to complete with Pitocin augmentation up to 8 milliunits, delivering a viable male infant over an intact perineum. Head was suctioned. Body was delivered. There was 30 seconds of cord resuscitation accomplished. Cord was clamped and transected. Cord pHs were obtained and cord blood was obtained. Placenta was delivered intact with 3-vessel cord noted. Uterus was firm with Pitocin and palpation. There was approximately 200 mL blood loss. Mother and baby to recovery in a stable condition. [facility] [place] DR: Beryl TID: [id number]
[2021-01-20] MEDS: IBUPROFEN 400 MG TABLET. PO SCH ×2 (14:53→23:07)
[2021-01-20 15:15] VITALS: BP 115/75
[2021-01-20 17:10] VITALS: BP 124/76
[2021-01-20 21:10] VITALS: BP 131/87
[2021-01-21 00:45] VITALS: BP 144/94
[2021-01-21 04:38] VITALS: BP 138/94
[2021-01-21] MEDS: IBUPROFEN 400 MG TABLET. PO SCH ×3 (07:53→22:00)
[2021-01-21] MEDS: FERROUS SULFATE 325 MG TABLET. PO SCH ×2 (08:00→17:00)
[2021-01-21 08:20] LABS: BASO # 0.1 x10^3/uL (0.0-0.2); BASO % 1 % (0-3); EOS % 1 % (0-3); HEMATOCRIT 39.5 % (36.0-47.0); HEMOGLOBIN 13.8 g/dL (12.0-15.5); LYMPH # 1.4 x10^3/uL (1.0-4.8); LYMPH % 16 % (24-48); MEAN CORPUSCULAR HEMOGLOBIN 33 pg (25-35); MEAN CORPUSCULAR HGB CONC 35 g/dL (31-37); MEAN CORPUSCULAR VOLUME 93 fL (79-100); MONO # 1.1 x10^3/uL (0.0-1.1); MONO % 12 % (0-9); NEUT # 6.5 x10^3/uL (1.8-7.7); NEUT % 71 % (31-73); PLATELET COUNT 181 x10^3/uL (140-400); RED BLOOD COUNT 4.24 x10^6/uL (3.50-5.40); RED CELL DISTRIBUTION WIDTH 13.5 % (11.5-14.5); WHITE BLOOD COUNT 9.2 x10^3/uL (4.0-11.0)
[2021-01-21] MEDS: MULTIVITAMIN with MINERAL TABLET. PO SCH (09:28)
[2021-01-21 12:15] VITALS: BP 108/71
[2021-01-21 17:30] VITALS: BP 121/88
[2021-01-21 22:20] VITALS: BP 123/88
[2021-01-22 06:00] VITALS: BP 138/102
[2021-01-22] MEDS: IBUPROFEN 400 MG TABLET. PO SCH (06:01)
[2021-01-22] MEDS: MULTIVITAMIN with MINERAL TABLET. PO SCH (09:16)
[2021-01-22] MEDS ORDERED: FLU VACC QUAD 21-22 (6MOS+) PF 0.5 ML SYRINGE. VAX IM ONE (11:00)
[2021-01-22 11:30] VITALS: BP 129/94
[2021-01-22] MEDS ORDERED: IBUP-1060 PO (13:11)
[2021-01-22] MEDS ORDERED: HYDR-2759 PO (13:11)
[2021-01-22] MEDS ORDERED: NIFE30TA2 PO (13:12)
--- NOTE | 2021-01-22 13:15 | PDOC ---
PROGRESS NOTES Date of Service 01/21/2021 9 AM Subjective Subjective Patient doing well day 1. Decreased bleeding and loci. Able to tolerate diet and ambulate well, urinating and having bowel movements without difficulty Objective Objective Vital Signs Date Time Temp Pulse Resp B/P (MAP) Pulse Ox O2 Delivery O2 Flow Rate FiO2 01/22/21 11:30 97.7 95 16 129/94 (106) Room Air 97.7 01/22/21 06:00 98 Intake and Output 01/22/21 07:00 Intake Total 900 ml Balance 900 ml Intake Oral 900 ml # Voids 3 Physical Exam Abdomen: Normal bowel sounds, Other (Abdomen soft uterus firm underneath umbilicus) Heart: Regular rate Extremities: No edema, Other (Negative Homans' sign) General: Alert Lungs: Clear to auscultation Neuro: Normal gait Assessment Assessment day #1. Hypertension under control. Plan Plan of Care Routine care proceed with breast-feeding Comment Review of Relevant I have reviewed the following items tamir (where applicable) has been applied. Labs Laboratory Tests Test 01/21/21 06:55 White Blood Count 9.2 x10^3/uL (4.0-11.0) Red Blood Count 4.24 x10^6/uL (3.50-5.40) Hemoglobin 13.8 g/dL (12.0-15.5) Hematocrit 39.5 % (36.0-47.0) Mean Corpuscular Volume 93 fL (79-100) Mean Corpuscular Hemoglobin 33 pg (25-35) Mean Corpuscular Hemoglobin Concent 35 g/dL (31-37) Red Cell Distribution Width 13.5 % (11.5-14.5) Platelet Count 181 x10^3/uL (140-400) Neutrophils (%) (Auto) 71 % (31-73) Lymphocytes (%) (Auto) 16 % (24-48) Monocytes (%) (Auto) 12 % (0-9) Eosinophils (%) (Auto) 1 % (0-3) Basophils (%) (Auto) 1 % (0-3) Neutrophils # (Auto) 6.5 x10^3/uL (1.8-7.7) Lymphocytes # (Auto) 1.4 x10^3/uL (1.0-4.8) Monocytes # (Auto) 1.1 x10^3/uL (0.0-1.1) Eosinophils # (Auto) 0.0 x10^3/uL (0.0-0.7) Basophils # (Auto) 0.1 x10^3/uL (0.0-0.2) Microbiology 01/20/21 Urine Culture - Final, Complete Medications Current Medications Sodium Chloride (Normal Saline Flush) 3 ml QSHIFT PRN IV AFTER MEDS AND BLOOD DRAWS; Start 01/20/21 at 07:00; Stop 01/22/21 at 07:41; Status DC Ringer's Solution 1,000 ml @ 125 mls/hr Q8H IV Last administered on 01/20/21at 10:39; Start 01/20/21 at 07:00; Stop 01/20/21 at 23:57; Status DC Fentanyl Citrate (Fentanyl 2ml Vial) 50 mcg PRN Q30MIN PRN IVP Mild to moderate pain; Start 01/20/21 at 07:00; Stop 01/22/21 at 07:41; Status DC Fentanyl Citrate (Fentanyl 2ml Vial) 100 mcg PRN Q30MIN PRN IVP Severe pain; Start 01/20/21 at 07:00; Stop 01/22/21 at 07:41; Status DC Acetaminophen (Tylenol) 650 mg PRN Q6HRS PRN PO MILD PAIN / TEMP > 100.3'F Last administered on 01/20/21at 20:28; Start 01/20/21 at 07:00; Stop 01/21/21 at 11:14; Status DC Ondansetron HCl (Zofran) 4 mg PRN Q4HRS PRN IVP NAUSEA/VOMITING 1ST CHOICE; Start 01/20/21 at 07:00; Stop 01/22/21 at 07:41; Status DC Al Hydroxide/Mg Hydroxide (Mylanta Plus Xs) 30 ml PRN Q4HRS PRN PO HEARTBURN / GAS Last administered on 01/20/21at 09:37; Start 01/20/21 at 07:00; Stop 01/21/21 at 11:15; Status DC Terbutaline Sulfate (Brethine) 0.25 mg 1X PRN PRN SQ SEE COMMENTS; Start 01/20/21 at 07:00; Stop 01/21/21 at 06:59; Status DC Lidocaine HCl (Xylocaine 1% Pf 30ml Vial) 30 ml 1X PRN PRN INJ SEE COMMENTS; Start 01/20/21 at 07:00; Stop 01/22/21 at 06:59; Status DC Oxytocin 500 ml @ 0 mls/hr CONT PRN IV SEE I/O RECORD; Start 01/20/21 at 07:00; Stop 01/22/21 at 07:41; Status DC Oxytocin 500 ml @ 0 mls/hr CONT PRN PRN IV Post delivery bleeding; Start 01/20/21 at 07:00; Stop 01/22/21 at 07:41; Status DC Ibuprofen (Motrin) 800 mg PRN Q6HRS PRN PO INFLAMMATION Last administered on 01/21/21at 20:06; Start 01/20/21 at 07:00; Stop 01/22/21 at 07:41; Status DC Fentanyl Citrate 50 ml @ As Directed STK-MED ONCE .ROUTE ; Start 01/20/21 at 10:50; Stop 01/20/21 at 10:50; Status DC Ropivacaine (Naropin 0.2%) 10 ml STK-MED ONCE .ROUTE ; Start 01/20/21 at 10:50; Stop 01/20/21 at 10:51; Status DC Ringer's Solution 1,000 ml @ 125 mls/hr Q8H IV ; Start 01/20/21 at 11:00; Stop 01/20/21 at 23:56; Status DC Ephedrine Sulfate (ePHEDrine PF IN SALINE SYRINGE) 10 mg PRN Q2MIN PRN IV IF SBP<90; Start 01/20/21 at 11:00 Naloxone HCl (Narcan) 0.04 mg PRN Q1MIN PRN IV SEE COMMENTS; Start 01/20/21 at 11:00; Stop 01/22/21 at 07:41; Status DC Ropivacaine (Naropin 0.2%) 20 ml 1X PRN PRN EPID PER ANESTHESIA; Start 01/20/21 at 11:00; Stop 01/22/21 at 07:41; Status DC Sodium Chloride (Normal Saline Flush) 10 ml QSHIFT PRN IV AFTER MEDS AND BLOOD DRAWS; Start 01/20/21 at 13:15; Stop 01/22/21 at 07:41; Status DC Oxytocin 500 ml @ 62.5 mls/hr CONT PRN IV SEE I/O RECORD; Start 01/20/21 at 13:15; Stop 01/20/21 at 21:14; Status DC Acetaminophen (Tylenol) 650 mg PRN Q6HRS PRN PO MILD PAIN / TEMP > 100.3'F; Start 01/20/21 at 13:15 Ibuprofen (Motrin) 800 mg Q8HRS PO Last administered on 01/22/21at 06:01; Start 01/20/21 at 14:00 Magnesium Hydroxide (Milk Of Magnesia) 2,400 mg PRN DAILY PRN PO CONSTIPATION; Start 01/20/21 at 13:15 Al Hydroxide/Mg Hydroxide (Mylanta Plus Xs) 30 ml PRN Q4HRS PRN PO HEARTBURN / GAS; Start 01/20/21 at 13:15 Simethicone (Gas-X) 80 mg PRN AFTMEALHC PRN PO GAS / BLOATING; Start 01/20/21 at 13:15 Diphenhydramine HCl (Benadryl) 25 mg PRN Q6HRS PRN PO ITCHING; Start 01/20/21 at 13:15 Benzocaine (Americaine) 1 spray PRN QID PRN TP TOPICAL PAIN; Start 01/20/21 at 13:15 Phenyleph/Shark Oil/Min Oil/Petrol (Preparation H) 1 katherine PRN QID PRN RC RECTAL PAIN; Start 01/20/21 at 13:15 Hydrocortisone (Cortaid) 1 katherine PRN QID PRN TP PERINEAL PAIN; Start 01/20/21 at 13:15 Ferrous Sulfate (Feosol) 325 mg BIDWMEALS PO ; Start 01/21/21 at 08:00; Stop 01/22/21 at 07:41; Status DC Zolpidem Tartrate (Ambien) 5 mg PRN QHS PRN PO INSOMNIA, MAY REPEAT X1; Start 01/20/21 at 13:15 Info (Do NOT chart on this placeholder) 1 ea 1X PRN PRN MC SEE COMMENTS; Start 01/20/21 at 13:15 Info (Do NOT chart on this placeholder) 1 ea 1X PRN PRN MC SEE COMMENTS; Start 01/20/21 at 13:15 Multivitamins (Thera M Plus) 1 tab DAILY PO Last administered on 01/22/21at 09:16; Start 01/21/21 at 09:00 Acetaminophen/ Hydrocodone Bitart (Lortab 5/325) 1 tab PRN Q4HRS PRN PO MILD PAIN 1-3; Start 01/20/21 at 13:15 Acetaminophen/ Hydrocodone Bitart (Lortab 5/325) 2 tab PRN Q4HRS PRN PO MODERATE PAIN, SEVERE PAIN; Start 01/20/21 at 13:15 Oxytocin (Oxytocin Premix Infusion) 30 unit STK-MED ONCE IV ; Start 01/20/21 at 07:30; Stop 01/21/21 at 13:16; Status DC Fentanyl Citrate (Bxllbgxq-Eiehz-DD 3 Mcg-0.1%) 50 ml STK-MED ONCE .ROUTE ; Start 01/20/21 at 11:00; Stop 01/22/21 at 08:45; Status DC Ropivacaine (Naropin 0.2%) 10 ml STK-MED ONCE .ROUTE ; Start 01/20/21 at 11:00; Stop 01/22/21 at 08:45; Status DC Influenza Virus Vaccine Quadrival (Flulaval Quad [id number] Syringe) 0.5 ml ONCE ONCE VAX IM Last administered on 01/22/21at 12:55; Start 01/22/21 at 11:00; Stop 01/22/21 at 11:01; Status DC Active Scripts Active Cephalexin 500 Mg Tablet 1 Tab PO TID 5 Days Compazine (Prochlorperazine Maleate) 10 Mg Tablet 1 Tab PO Q6HRS Cephalexin 500 Mg Tablet 1 Tab PO BID Orphenadrine Citrate 100 Mg Tablet.er 1 Tab PO BID [place] 5-325 Tablet (Acetaminophen/Hydrocodone Bitart) 1 Each Tablet 1 Tab PO PRN Q6HRS PRN Reported Lisinopril 10 Mg Tablet 10 Mg PO DAILY Zoloft (Sertraline Hcl) 25 Mg Tablet 25 Mg PO DAILY Vitals/I & O Vital Sign - Last 24 Hours 01/21/21 01/21/21 01/21/21 01/22/21 17:30 20:00 22:20 06:00 Temp 98.6 97.9 98.1 98.6 97.9 98.1 Pulse 96 96 109 Resp 18 20 18 B/P (MAP) 121/88 (99) 123/88 (100) 138/102 (114) Pulse Ox 98 98 98 O2 Delivery Room Air Room Air Room Air Room Air 01/22/21 11:30 Temp 97.7 97.7 Pulse 95 Resp 16 B/P (MAP) 129/94 (106) O2 Delivery Room Air Intake and Output 01/21/21 01/21/21 01/22/21 15:00 23:00 07:00 Intake Total 900 ml Balance 900 ml Justifications for Admission Other Justification YONI LIVE MD Jan 22, 2021 13:15
--- NOTE | 2021-01-22 13:17 | PDOC3 ---
OB DISCHARGE SUMMARY DATE OF ADMISSION: 01/20/2021 DATE OF DISCHARGE: 01/22/2021 REASON FOR ADMISSION: Induction of labor PROCEDURES: Mgmt of Med Complications INTRAPARTUM PROCEDURES: Spontanous Vag Deliv DISCHARGE DIAGNOSIS: Term Delivered DISCHARGE INFORMATION: Activity (No sexual activity for 6 weeks) HOSPITAL COURSE Routine CONDITION AT DISCHARGE Stable day 2 follow-up 6 weeks continue medications as prescribed YONI LIVE MD Jan 22, 2021 13:17
[2021-01-22 15:15] VITALS: BP 129/90
--- NOTE | 2021-01-22 17:02 | NUR ---
Discharge Note: TERESA MAN L3 SO LND Discharge instructions and discharge home medications reviewed with Patient and a copy given. All questions have been answered and understanding verbalized. 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
== END 2021-01-22 15:45 | disposition home or self-care (01) | DRG 807 ==
LOC: 3 SO LND 06:07
PROVIDERS: ADMIT Family Medicine; ATTEND Family Medicine
PROC: 10E0XZZ Delivery of Products of Conception, External Approach (ICD-10-PCS; principal; 2021-01-20)
PROC: 10907ZC Drainage of Amniotic Fluid, Therapeutic from Products of Conception, Via Natural or Artificial Opening (ICD-10-PCS; 2021-01-20)
DX: O13.4 Gestational [pregnancy-induced] hypertension without significant proteinuria, complicating childbirth (principal); Z37.0 Single live birth; Z86.32 Personal history of gestational diabetes; Z3A.38 38 weeks gestation of pregnancy
CPT/HCPCS: 36415; 80307; 81001; 85025; 86592; 86850; 86900; 86901; 87086; 90471; 90686; J2590; J2795; J3010; J7120; G0378

== ENCOUNTER 2021-04-29 17:40 | Emergency (ER) | payer OTHER ==
[~2021-04-29] VITALS: Ht 157.5 cm; Wt 66.8 kg
[~2021-04-29 17:40] MED LIST changes: +HYDR-2759 PO; +IBUP-1060 PO; +NIFE30TA2 PO
[2021-04-29 18:09] LABS: BASO # 0.1 x10^3/uL (0.0-0.2); BASO % 1 % (0-3); EOS # 0.1 x10^3/uL (0.0-0.7); EOS % 1 % (0-3); HEMATOCRIT 39.7 % (36.0-47.0); HEMOGLOBIN 13.9 g/dL (12.0-15.5); LYMPH # 1.1 x10^3/uL (1.0-4.8); LYMPH % 23 % (24-48); MEAN CORPUSCULAR HEMOGLOBIN 31 pg (25-35); MEAN CORPUSCULAR HGB CONC 35 g/dL (31-37); MEAN CORPUSCULAR VOLUME 89 fL (79-100); MONO # 0.6 x10^3/uL (0.0-1.1); MONO % 13 % (0-9); NEUT % 62 % (31-73); PLATELET COUNT 246 x10^3/uL (140-400); RED BLOOD COUNT 4.46 x10^6/uL (3.50-5.40); RED CELL DISTRIBUTION WIDTH 12.7 % (11.5-14.5); WHITE BLOOD COUNT 4.8 x10^3/uL (4.0-11.0)
--- NOTE | 2021-04-29 18:10 | EKG ---
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
--- NOTE | 2021-04-29 18:10 | PHYS DOC ---
Past Medical History Past Medical History: Hypertension Additional Past Medical Histor: MISCARRIAGE Past Surgical History: No Surgical History Smoking Status: Never Smoker Alcohol Use: None Drug Use: None NIHSS Stroke Scale NIH Stroke Scale: NIH Stroke Scale Response (Comments) Value Level of Consciousness: 0 Alert/Responsive 0 LOC Questions: 0 Answers both correctly 0 LOC Commands: 0 Performs both tasks 0 Best Gaze: 0 Normal 0 Visual: 0 No visual loss 0 Facial Palsy: 0 Normal, symmetrical 0 Motor - Left Arm 0 No drift 0 Motor - Right Arm 0 No drift 0 Motor - Left Leg 0 No drift 0 Motor: Right Leg 0 No drift 0 Limb Ataxia: 0 Absent 0 Sensory: 0 No loss 0 Best Language: 0 Normal 0 Dysathria: 0 Normal 0 Extinction and Inattention: 0 Normal 0 Total 0 General Adult EDM: Chief Complaint: HEADACHE HPI: HPI: Patient is a 35-year-old female who presents to the emergency department for fatigue, frontal headache, generalized weakness that started 15 minutes prior to arrival. Patient believes that her symptoms are because her blood pressure is elevated because she forgot to take her blood pressure medication this morning. Patient cannot tell me which blood pressure medication that she takes with starts with an ax. Patient took Tylenol 15 minutes prior to ER arrival. She states that this is not the worst headache she is ever experienced, she has a history of headaches. She states that the Tylenol has improved her headache, she denies any nausea, vomiting, photophobia, phonophobia, vision changes, fevers, unilateral weakness, shortness of breath, chest pain, thunderclap h eadache. Review of Systems: Review of Systems: Constitutional: See HPI Eyes: See HPI HENT: See HPI Respiratory: See HPI Cardiovascular: See HPI GI: See HPI Musculoskeletal: See HPI Neurologic: See HPI Heart Score: C/O Chest Pain: No Risk Factors: Risk Factors: DM, Current or recent (<one month) smoker, HTN, HLP, family history of CAD, obesity. Risk Scores: Score 0 - 3: 2.5% MACE over next 6 weeks - Discharge Home Score 4 - 6: 20.3% MACE over next 6 weeks - Admit for Clinical Observation Score 7 - 10: 72.7% MACE over next 6 weeks - Early Invasive Strategies Allergies: Allergies: Allergies Coded Allergies Type Severity Reaction Last Updated Verified No Known Drug Allergies 04/29/21 No Physical Exam: PE: Constitutional: Well developed, well nourished, no acute distress, non-toxic appearance. [] HENT: Normocephalic, atraumatic, bilateral external ears normal, oropharynx moist, no oral exudates, nose normal. [] Eyes: PERRLA, 4 mm bilaterally, EOMI, conjunctiva normal, no discharge. [] Neck: Normal range of motion, no tenderness, no neutral rigidity, supple, no stridor. [] Cardiovascular:Heart rate regular rhythm, no murmur [] Lungs & Thorax: Bilateral breath sounds clear to auscultation [] Abdomen: Bowel sounds normal, soft, no tenderness, no masses, no pulsatile masses. [] Skin: Warm, dry, no erythema, no rash. [] Back: Normal range of motion Extremities: No tenderness, no cyanosis, no clubbing, ROM intact, no edema. [] Neurologic: Alert and oriented X 3, normal motor function, normal sensory function, no focal deficits noted, no limb ataxia, no pronator drift, patient answering all questions appropriately, no speech problems, no unilateral weakness. [] Psychologic: Affect normal, judgement normal, mood normal. [] Current Patient Data: Labs: Laboratory Tests Test 04/29/21 18:00 04/29/21 18:13 White Blood Count 4.8 x10^3/uL Red Blood Count 4.46 x10^6/uL Hemoglobin 13.9 g/dL Hematocrit 39.7 % Mean Corpuscular Volume 89 fL Mean Corpuscular Hemoglobin 31 pg Mean Corpuscular Hemoglobin Concent 35 g/dL Red Cell Distribution Width 12.7 % Platelet Count 246 x10^3/uL Neutrophils (%) (Auto) 62 % Lymphocytes (%) (Auto) 23 % Monocytes (%) (Auto) 13 % Eosinophils (%) (Auto) 1 % Basophils (%) (Auto) 1 % Neutrophils # (Auto) 3.0 x10^3/uL Lymphocytes # (Auto) 1.1 x10^3/uL Monocytes # (Auto) 0.6 x10^3/uL Eosinophils # (Auto) 0.1 x10^3/uL Basophils # (Auto) 0.1 x10^3/uL Urine Collection Type Unknown Urine Color Yellow Urine Clarity Clear Urine pH 5.5 Urine Specific [place] 1.020 Urine Protein Negative mg/dL Urine Glucose (UA) Negative mg/dL Urine Ketones (Stick) Negative mg/dL Urine Blood Large Urine Nitrite Negative Urine Bilirubin Negative Urine Urobilinogen Dipstick 1.0 mg/dL Urine Leukocyte Esterase Negative Urine RBC >40 /HPF Urine WBC Occ /HPF Urine Squamous Epithelial Cells Few /LPF Urine Bacteria 0 /HPF Urine Mucus Slight /LPF Sodium Level 135 mmol/L Potassium Level 3.6 mmol/L Chloride Level 103 mmol/L Carbon Dioxide Level 25 mmol/L Anion Gap 7 Blood Urea Nitrogen 9 mg/dL Creatinine 0.7 mg/dL Estimated GFR (Cockcroft-Gault) 94.7 BUN/Creatinine Ratio 13 Glucose Level 102 mg/dL Calcium Level 8.5 mg/dL Total Bilirubin 0.4 mg/dL Aspartate Amino Transf (AST/SGOT) 22 U/L Alanine Aminotransferase (ALT/SGPT) 21 U/L Alkaline Phosphatase 110 U/L Ammonia 17 mcmol/L Troponin I High Sensitivity 5 ng/L Total Protein 7.3 g/dL Albumin 3.8 g/dL Albumin/Globulin Ratio 1.1 Urine Opiates Screen Neg Urine Methadone Screen Neg Urine Barbiturates Neg Urine Phencyclidine Screen Neg Urine Amphetamine/Methamphetamine Neg Urine Benzodiazepines Screen Neg Urine Cocaine Screen Neg Urine Cannabinoids Screen Neg Ethyl Alcohol Level < 10 mg/dL Urine Ethyl Alcohol Neg Bedside Urine HCG, Qualitative Hcg negative Current Medications Medications (Trade) Dose Ordered Sig/Dale Route PRN Reason Start Time Stop Time Status Last Admin Dose Admin Prochlorperazine Edisylate (Compazine) 10 mg 1X ONCE IV 04/29/21 19:00 04/29/21 19:01 DC Ketorolac Tromethamine (Toradol 30mg Vial) 30 mg 1X ONCE IVP 04/29/21 19:00 04/29/21 19:01 DC Diphenhydramine HCl (Benadryl) 25 mg 1X ONCE IVP 04/29/21 19:00 04/29/21 19:01 DC Sodium Chloride 1,000 ml @ 1,000 mls/hr 1X ONCE IV 04/29/21 19:00 04/29/21 19:59 DC Vital Signs: Vital Signs Date Time Temp Pulse Resp B/P (MAP) Pulse Ox O2 Delivery O2 Flow Rate FiO2 04/29/21 17:45 98.6 120 16 147/91 (109) 99 Room Air 98.6 EKG: EKG: EKG performed by ER staff at 1804 shows sinus tachycardia with a rate of 115, QTC of 506, no STEMI read by Dr. Savage at 1808 [] Radiology/Procedures: Radiology/Procedures: []PROCEDURE: CT HEAD WO CONTRAST Exam: CT head INDICATION: Altered mental status TECHNIQUE: Sequential axial images through the head were obtained without the administration of IV contrast. Exposure: One or more of the following in the visualized dose reduction romain hniques were utilized for this examination: 1. Automated exposure control 2. Adjustment of the MA and/or KV according to patient size 3. Use of iterative of reconstructive technique Comparisons: None FINDINGS: No focal parenchymal lesion or hemorrhage is identified. There is no midline shift or sulcal effacement. No acute vascular territory infarction is identified. Jon-white distinction is preserved. The ventricular system is within normal limits without compression hydrocephalus. The basal cisterns are well maintained. The visualized portions of the paranasal sinuses and mastoid air cells are well- pneumatized. No acute fractures. IMPRESSION: No acute intracranial abnormality. Electronically signed by: Amanda Jones MD (04/29/2021 6:45 PM) [facility] DICTATED and SIGNED BY: AMANDA JONES MD DATE: 04/29/21 [id number] 0 Course & Med Decision Making: Course & Med Decision Making Pertinent Labs and Imaging studies reviewed. (See chart for details) [] Patient presents to the emergency department for frontal headache, generalized weakness and feeling tired. Patient states that she has a history of headaches and she does not take her blood pressure medication and her blood pressure becomes elevated. Her blood pressure is mildly elevated in the emergency department. She cannot tell me which blood pressure medication she takes but states that it starts with an x. Patient does not have any meningeal signs, no thunderclap headache. Patient does not have any focal neuro deficits. Work-up in the ER consisted of blood work, urinalysis, EKG, CT scan of head. 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 They state that when patient arrived to ER room she was acting appropriately. Patient's work-up in the ER was unremarkable. CT scan of her head showed no acute findings. I did order migraine cocktail to treat patient's headache. Prior to patient receiving the medication she reports that her headache has resolved and she is resting comfortably in the emergency department bed. She reports that she does not require any medication for her headache. Her blood pressure has improved while in the emergency department. Her vital signs are stable, she has no focal neuro deficit. I advised patient to monitor her blood pressure at home and take her medications as directed. I advised her to take anti-inflammatory medications for her headaches if she gets them again. She was given follow-up referral information for neurology. I discussed with patient all findings and diagnostic testing as well as the need to follow-up with PCP for further evaluation and treatment or return to the ER if any new or worsening symptoms. Strict return precautions were also discussed at length. Patient voiced understanding and agreement with the plan. Patient is hemodynamically stable at the time of disposition. Dragon Disclaimer: Dragon Disclaimer: This electronic medical record was generated, in whole or in part, using a voice recognition dictation system. Departure Departure Impression: Primary Impression: Headache Qualified Codes: R51.9 - Headache, unspecified Disposition: HOME / SELF CARE / HOMELESS Condition: GOOD Referrals: YONI LIVE MD (PCP) ELLE GAMA MD Patient Instructions: General Headache Without Cause Additional Instructions: You were seen in the emergency department today for fatigue and a headache. Your blood work was reassuring. Your urinalysis did not show any acute findings. We performed a scan of your head that showed no acute findings. We tested you for COVID-19 and you will be notified of those results when they become available in approximately 1 to 2 days. Please self isolate until you receive these results. Please take Tylenol and/or ibuprofen for any headaches at home. Increase your fluids and rest. Follow-up with your primary care provider tomorrow regarding your ER visit. You are being sent home with referral information for a neurologist that I would like you to follow-up with if you continue to have headaches. Please return to the emergency department if you develop headache, intractable nausea or vomiting, vision changes, weakness on one side, inability to walk, confusion, speech problems, high fevers refractory to treatment or any new or worsening concerns. NICOLE SOTELO APRN Apr 29, 2021 18:10
[2021-04-29 18:18] LABS: BILIRUBIN,URINE NEGATIVE (NEG); CLARITY,URINE CLEAR; COLOR,URINE YELLOW; NITRITE,URINE NEGATIVE (NEG); PH,URINE 5.5 (<5.0-8.0); PROTEIN,URINE NEGATIVE (NEG-TRACE)
[2021-04-29 18:24] LABS: BARBITURATES NEG (NEG); BENZODIAZEPINES NEG (NEG); CALCIUM 8.5 mg/dL (8.5-10.1); CANNABINOIDS NEG (NEG); COCAINE NEG (NEG); CREATININE 0.7 mg/dL (0.6-1.0); GFR 94.7; METHADONE NEG (NEG); OPIATES NEG (NEG); PHENCYCLIDINE NEG (NEG); POTASSIUM 3.6 mmol/L (3.5-5.1)
[2021-04-29 18:30] LABS: ALBUMIN 3.8 g/dL (3.4-5.0); ALBUMIN/GLOBULIN RATIO 1.1 (1.0-1.7); TOTAL BILIRUBIN 0.4 mg/dL (0.2-1.0); TOTAL PROTEIN 7.3 g/dL (6.4-8.2)
[2021-04-29 18:34] LABS: BACTERIA,URINE 0 /HPF (0-FEW); WBC,URINE OCC /HPF (0-4)
[2021-04-29 18:35] LABS: RBC,URINE >40 /HPF (0-2)
[2021-04-29 18:45] LABS: AMPHETAMINE/METHAMPHETAMINE NEG (NEG)
--- NOTE | 2021-04-29 18:47 | RAD ---
Exam: CT head INDICATION: Altered mental status TECHNIQUE: Sequential axial images through the head were obtained without the administration of IV co ntrast. Exposure: One or more of the following in the visualized dose reduction techniques were utilized for this examination: 1. Automated exposure control 2. Adjustment of the MA and/or KV according to patient size 3. Use of iterative of reconstructive technique Comparisons: None FINDINGS: No focal parenchymal lesion or hemorrhage is identified. There is no midline shift or sulcal effaceme nt. No acute vascular territory infarction is identified. Jon-white distinction is preserved. The ventricular system is within normal limits without compression hydrocephalus. The basal cisterns are well maintained. The visualized portions of the paranasal sinuses and mastoid air cells are well-pneumatized. No acute fractures. IMPRESSION: No acute intracranial abnormality. Electronically signed by: Amanda Medina MD (04/29/2021 6:45 PM) [facility]
[2021-04-29] MEDS ORDERED: diphenhydrAMINE 50 MG/ML VIAL IVP ONE (19:00)
[2021-04-29] MEDS ORDERED: PROCHLORPERAZINE 10 MG/2 ML VIAL. IV ONE (19:00)
[2021-04-29] MEDS ORDERED: KETOROLAC 30 MG/ML VIAL. IVP ONE (19:00)
[2021-04-29] MEDS ORDERED: IV NORMAL SALINE 1000ML BAG 1,000 ML IV ONE (19:00)
[2021-04-29 20:30] VITALS: BP 111/72
== END 2021-04-29 21:16 | disposition home or self-care (01) ==
LOC: ER 17:40
DX: U07.1 COVID-19 (principal); I10 Essential (primary) hypertension
CPT/HCPCS: 36415; 70450; 80053; 80307; 81001; 81025; 82140; 84484; 85025; 93005; 96360; 99285; G0480; J7030; U0003; U0005

== ENCOUNTER 2021-07-22 14:00 | Emergency (ER) | payer OTHER ==
[~2021-07-22] VITALS: Ht 157.5 cm; Wt 64.5 kg
[2021-07-22 14:02] VITALS: BP 162/100
--- NOTE | 2021-07-22 14:29 | PHYS DOC ---
Past Medical History Past Medical History: Hypertension Additional Past Medical Histor: MISCARRIAGE Past Surgical History: No Surgical History Smoking Status: Never Smoker Alcohol Use: None Drug Use: None General Adult EDM: Chief Complaint: ABDOMINAL PAIN HPI: HPI: Patient is a 35 year old female with history of hypertension presenting today complaining of 6 out of 10 diffuse abdominal pain, symptoms have been going on intermittently for 1 week. Describes the pain as sharp. States the pain is worse after eating, denies anything relieving the pain. Denies any nausea, vomiting, diarrhea. Patient is an employee at [employer] Review of Systems: Review of Systems: Constitutional: Denies fever or chills. [] Eyes: Denies change in visual acuity. [] HENT: Denies nasal congestion or sore throat. [] Respiratory: Denies cough or shortness of breath. [] Cardiovascular: Denies chest pain or edema. [] GI: Reports generalized abdominal pain, denies nausea, vomiting, bloody stools or diarrhea. [] : Denies dysuria. [] Musculoskeletal: Denies back pain or joint pain. [] Integument: Denies rash. [] Neurologic: Denies headache, focal weakness or sensory changes. [] Psychiatric: Denies depression or anxiety. [] Heart Score: C/O Chest Pain: N/A Risk Factors: Risk Factors: DM, Current or recent (<one month) smoker, HTN, HLP, family history of CAD, obesity. Risk Scores: Score 0 - 3: 2.5% MACE over next 6 weeks - Discharge Home Score 4 - 6: 20.3% MACE over next 6 weeks - Admit for Clinical Observation Score 7 - 10: 72.7% MACE over next 6 weeks - Early Invasive Strategies Current Medications: Current Medications Medications (Trade) Dose Ordered Sig/[facility] Start Time Stop Time Status Last Admin Dose Admin Ketorolac Tromethamine (Toradol 30mg Vial) 30 mg 1X ONCE 07/22/21 14:30 07/22/21 14:31 UNV Ondansetron HCl (Zofran) 4 mg 1X ONCE 07/22/21 14:30 07/22/21 14:31 UNV Allergies: Allergies: Allergies Coded Allergies Type Severity Reaction Last Updated Verified No Known Drug Allergies 04/29/21 No Physical Exam: PE: Constitutional: Well developed, well nourished, no acute distress, non-toxic appearance. [] HENT: Normocephalic, atraumatic, bilateral external ears normal, oropharynx moist, no oral exudates, nose normal. [] Eyes: PERRLA, EOMI, conjunctiva normal, no discharge. [] Neck: Normal range of motion, no tenderness, supple, no stridor. [] Cardiovascular:Heart rate regular rhythm, no murmur [] Lungs & Thorax: Bilateral breath sounds clear to auscultation [] Abdomen: Bowel sounds normal, soft, diffuse tenderness throughout the abdomen, no obvious point tenderness to the right upper quadrant or right lower quadrant, negative Ross sign, negative psoas sign, negative obturator sign, no guarding, no rebound pain or tenderness, no masses, no pulsatile masses. [] Skin: Warm, dry, no erythema, no rash. [] Back: No tenderness, no CVA tenderness. [] Extremities: No tenderness, no cyanosis, no clubbing, ROM intact, no edema. [] Neurologic: Alert and oriented X 3, normal motor function, normal sensory function, no focal deficits noted. [] Psychologic: Affect normal, judgement normal, mood normal. [] Current Patient Data: Vital Signs: Vital Signs Date Time Temp Pulse Resp B/P (MAP) Pulse Ox O2 Delivery O2 Flow Rate FiO2 07/22/21 14:02 97.7 110 18 162/100 (120) 100 Room Air 97.7 EKG: EKG: [] Radiology/Procedures: Radiology/Procedures: []PROCEDURE: CT ABD PELV W/ IV CONTRST ONLY PQRS Compliance Statement: One or more of the following individualized dose reduction techniques were utilized for this examination: 1. Automated exposure control 2. Adjustment of the mA and/or kV according to patient size 3. Use of iterative reconstruction technique CT abdomen/pelvis with contrast 07/22/2021 3:55 PM INDICATION: Abdominal pain COMPARISON: None available TECHNIQUE: Multiple axial CT images of the abdomen and pelvis were obtained after the intravenous administration of 75 mL Omnipaque 300. Coronal and sagittal reformats are provided. 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 Heart size within normal limits. Liver, spleen, adrenal glands, pancreas and gallbladder are normal in appearance. The abdominal aorta is normal in course and caliber. There are no pathologically enlarged lymph nodes in the abdomen and pelvis. There is no abdominal free fluid. There is no free intraperitoneal air. Small and large bowel are normal in caliber. There are portions of the large bowel which are underdistended, limiting evaluation. There is no evidence for bowel obstruction. There are no pericolonic inflammatory changes. A normal, nondilated appendix is visualized without adjacent inflammatory changes. There are 2 nonobstructing calculi in the inferior pole left kidney measuring up to 3 mm. No calculi identified within the ureters or urinary bladder. No hydronephrosis. No suspicious renal mass. There is symmetric enhancement of the renal parenchyma. Urinary bladder is within normal limits given degree of distention. IUD is present. No suspicious adnexal mass. No pelvic free fluid. No suspicious osseous abnormality. IMPRESSION: No acute abnormality identified within the abdomen and pelvis as detailed above. Limited evaluation of portions of the colon secondary to underdistention. Nonobstructing renal calculi in inferior pole left kidney measure up to 3 mm. Electronically signed by: Renny Garcia MD (07/22/2021 4:21 PM) [facility] DICTATED and SIGNED BY: RENNY GARCIA MD DATE: 07/22/21 1616 Course & Med Decision Making: Course & Med Decision Making Pertinent Labs and Imaging studies reviewed. (See chart for details) This a 35-year-old female patient presented to the ED today with generalized abdominal pain intermittently for 1 week. Negative urine hCG, CBC, CMP, UA negative for any acute findings, CT of the abdomen and pelvis is negative for any acute findings, noted for nonobstructing renal calculi in inferior pole left kidney measure up to 3 mm. Discharged home. Follow-up with PCP next week. Also provided urologist for the kidney stone Lisa Disclaimer: Lisa Disclaimer: This electronic medical record was generated, in whole or in part, using a voice recognition dictation system. Departure Departure Impression: Primary Impression: Abdominal pain Qualified Codes: R10.84 - Generalized abdominal pain Additional Impression: Renal calculus, left Disposition: HOME / SELF CARE / HOMELESS Condition: STABLE Referrals: YONI LVIE MD (PCP) follow up next week LAXMI ZAMAN MD follow up in one week Patient Instructions: Abdominal Pain, Kidney Stones, [id number] Additional Instructions: You were evaluated in the emergency room for abdominal pain. Your work-up in [facility] emergency room is negative for any acute findings. You have a nonobstructing kidney stone in your left kidney. Please follow-up with your primary care doctor and the provided urologist for this. Scripts Dicyclomine Hcl (DICYCLOMINE HCL) 20 Mg Tablet 1 TAB PO TID, #20 TAB 1 Refill Prov: MICHAEL LIU APRN 07/22/21 MICHAEL LIU APRN Jul 22, 2021 14:29
[2021-07-22] MEDS ORDERED: KETOROLAC 30 MG/ML VIAL. IVP ONE (14:30)
[2021-07-22] MEDS ORDERED: FAMOTIDINE 20 MG/2 ML VIAL IVP ONE (14:30)
[2021-07-22] MEDS ORDERED: ONDANSETRON PF 4 MG/2 ML VIAL. IVP ONE (14:30)
[2021-07-22 14:42] LABS: BASO # 0.1 x10^3/uL (0.0-0.2); BASO % 1 % (0-3); EOS # 0.2 x10^3/uL (0.0-0.7); EOS % 3 % (0-3); HEMATOCRIT 45.5 % (36.0-47.0); HEMOGLOBIN 15.2 g/dL (12.0-15.5); LYMPH # 2.6 x10^3/uL (1.0-4.8); LYMPH % 37 % (24-48); MEAN CORPUSCULAR HEMOGLOBIN 29 pg (25-35); MEAN CORPUSCULAR HGB CONC 33 g/dL (31-37); MEAN CORPUSCULAR VOLUME 87 fL (79-100); MONO # 0.5 x10^3/uL (0.0-1.1); MONO % 7 % (0-9); NEUT # 3.7 x10^3/uL (1.8-7.7); NEUT % 53 % (31-73); PLATELET COUNT 302 x10^3/uL (140-400); RED BLOOD COUNT 5.22 x10^6/uL (3.50-5.40); WHITE BLOOD COUNT 7.1 x10^3/uL (4.0-11.0)
[2021-07-22 15:08] LABS: BACTERIA,URINE 0 /HPF (0-FEW); RBC,URINE TNTC /HPF (0-2)
[2021-07-22 15:11] LABS: CALCIUM 8.6 mg/dL (8.5-10.1); CREATININE 0.7 mg/dL (0.6-1.0); GFR 94.7; POTASSIUM 3.5 mmol/L (3.5-5.1)
[2021-07-22 15:17] LABS: ALBUMIN 3.9 g/dL (3.4-5.0); ALBUMIN/GLOBULIN RATIO 1.1 (1.0-1.7); TOTAL BILIRUBIN 0.4 mg/dL (0.2-1.0); TOTAL PROTEIN 7.3 g/dL (6.4-8.2)
[2021-07-22 15:48] LABS: U PREG PATIENT NEGATIVE (NEG)
[2021-07-22] MEDS ORDERED: IOHEXOL 300 MG/ML 100ML VIAL. IV ONE (16:00)
[2021-07-22] MEDS ORDERED: CONTRAST GIVEN. MC PRN (16:15)
--- NOTE | 2021-07-22 16:24 | RAD ---
PQRS Compliance Statement: One or more of the following individualized dose reduction techniques were utilized for this examinat ion: 1. Automated exposure control 2. Adjustment of the mA and/or kV according to patient size 3. Use of iterative reconstruction technique CT abdomen/pelvis with contrast 07/22/2021 3:55 PM INDICATION: Abdominal pain COMPARISON: None available TECHNIQUE: Multiple axial CT images of the abdomen and pelvis were obtained after the intravenous adm inistration of 75 mL Omnipaque 300. Coronal and sagittal reformats are provided. 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 Heart size within normal limits. Liver, splee n, adrenal glands, pancreas and gallbladder are normal in appearance. The abdominal aorta is normal in course and caliber. There are no pathologically enlarged lymph nodes in the abdomen and pelvis. There is no abdominal free fluid. There is no free intraperitoneal air. Small and large bowel are normal in caliber. There are portions of the large bowel which are underdis tended, limiting evaluation. There is no evidence for bowel obstruction. There are no pericolonic inf lammatory changes. A normal, nondilated appendix is visualized without adjacent inflammatory changes. There are 2 nonobstructing calculi in the inferior pole left kidney measuring up to 3 mm. No calculi identified within the ureters or urinary bladder. No hydronephrosis. No suspicious renal mass. There is symmetric enhancement of the renal parenchyma. Urinary bladder is within normal limits given degre e of distention. IUD is present. No suspicious adnexal mass. No pelvic free fluid. No suspicious osseous abnormality. IMPRESSION: No acute abnormality identified within the abdomen and pelvis as detailed above. Limited evaluation o f portions of the colon secondary to underdistention. Nonobstructing renal calculi in inferior pole left kidney measure up to 3 mm. Electronically signed by: Francine Rodgers MD (07/22/2021 4:21 PM) [facility]
[2021-07-22] MEDS ORDERED: DICY20TA PO (17:05)
== END 2021-07-22 17:34 | disposition home or self-care (01) ==
LOC: ER 14:00
DX: N20.0 Calculus of kidney (principal); I10 Essential (primary) hypertension
CPT/HCPCS: 36415; 74177; 80053; 81001; 81025; 83690; 85025; 96374; 96375; 99285; J1885; J2405; J3490; Q9967